=== PATIENT | female | born 1995 | race Caucasian/White ===

== ENCOUNTER → 2016-07-08 | Outpatient (CLI) | payer MEDICAID ==
--- NOTE | 2016-07-08 16:20 | RADIOLOGY REPORT PS360 ---
HAND-RT 3 VIEWS HISTORY: Follow-up fracture HEALING OF RT HAND FX ORDERING PHYSICIAN: Gómez Roland MD PATIENT AGE: 21 years COMPARISON: 07/03/2016 FINDINGS: A splint is in place obscuring the fifth metacarpal fracture. There is good alignment of fracture fragments. Fracture line is barely visible. IMPRESSION: Good alignment fifth metacarpal fracture
== END ==
LOC: RAD 15:33
DX: S62.91XA Unspecified fracture of right hand, initial encounter for closed fracture (principal)

== ENCOUNTER 2017-01-15 17:19 | Emergency (ER) | payer MEDICAID ==
[~2017-01-15] VITALS: Ht 167.6 cm; Wt 47.6 kg
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
--- OUTSIDE RECORDS SUMMARY | 2017-01-15 17:42 | External Medical Summary Rpt | CCD ---
Demographics Preferred Language Greenlandic Marital Status Unknown Buddhism Affiliation Unknown Race Unknown Ethnic Group Unknown Author Author , DEANNA NAVARRO Address Unknown Phone Immunization No patient found.
--- OUTSIDE RECORDS SUMMARY | 2017-01-15 17:42 | External Medical Summary Rpt | CCD ---
Demographics Preferred Language Setswana Marital Status Unknown Shinto Affiliation Unknown Race Unknown Ethnic Group Unknown Author Author , DEANNA NAVARRO Address Unknown Phone Immunization No patient found.
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
--- OUTSIDE RECORDS SUMMARY | 2017-01-15 17:42 | External Medical Summary Rpt ---
Author Author RAMON Adan, [employer] Organization [employer] Address Unknown Phone Unavailable Results ELBLT Observa Value Referen Units Interpr Notes Date tion ce etation Range TEXT ORIENTAL ORTHODOX No No No No Nov 23 DIAGNOS HEALTH informa informa informa informa 2013 IS tion in tion in tion in tion in 4:14 PM BATTERY RICHMON source source source source D\\.br\\8 data data data data [facility] \\ .br\\[place] [address]\\. br\\[id number] [phone] 1\\.br\\\\ .br\\[facility]\\ .br\\100 10176\\ .br\\\\.b r\\Helen d\\.br\\\\ .br\\PAT IENT NAME: LEX SCHROEDER 236\\.br \\: 995 [address]\\. br\\ATTE NDING: DATE OF EXAM: 4\\.br\\P RIMARY CARE: NOT IN DICTION MONICA LOCATIO N:\\.br\\ \\.br\\OR DERING PHYSICI AN: JUANCHO MADISON MD\\.br\\ PROCEDU RE(s): ELBOW LEFT\\.b r\\ORDER NUMBER( s): [id number] 61\\.br\\ \\.br\\CC :\\.br\\\\ .br\\\\.b r\\\\.br\\ \\.br\\EX AM: LEFT ELBOW RADIOGR APHS\\.b r\\\\.br\\ CLINICA L INFO: Pain.\\. br\\\\.br \\TECHNI QUE: Three views.\\ .br\\\\.b r\\FINDI NGS: There are no fractur es or disloca tions. There is no joint effusio n.\\.br\\ The soft tissues are unremar kable.\\ .br\\\\.b r\\IMPRE SSION: Unremar kable exam.\\. br\\\\.br \\\\.br\\\\ .br\\Rev iewed and signed by: LUIS MANUEL HAIR MD, 014 08:27:2 3\\.br\\T his documen t has been electro nically signed and is conside red final.\\ .br\\\\.b r\\\\.br\\ SR/5554 160\\.br \\ \\ .br\\\\.b r\\DICTA FELIPE BY: LUIS MANUEL HAIR MD\\.br\\ DICTATE D DATE/TI ME: 4 1614\\.b r\\TRANS CRIBED DATE/TI ME: 4 1648\\.b r\\\\.br\\ CC:\\.br \\ URINE CULTURE Observa Value Referen Units Interpr Notes Date tion ce etation Range TEXT ------- . . Normal No Oct 1 DIAGNOS ------- informa 2013 IS ------- tion in 3:27 PM BATTERY ------- source ------- data ------- ------- ------- ------- ------- ------- ------- ------- -RUN DATE: 4 [employer] [facility] LIVE* * PAGE 1RUN TIME: 620 Specime n Inquiry ------- ------- ------- ------- ------- ------- ------- ------- ------- ------- ------- ------- ------- -ALLIE T: LEX SCHROEDER ACCT: [id number] LOC: ED U: [id number] AGE/SX: 18/F ROOM: RE 4REG DR: JUANCHO MADISON MD : [id number] BED: DIS: STATUS: DEP ER TLOC:-- ------- ------- ------- ------- ------- ------- ------- ------- ------- ------- ------- ------- ------S PEC #: [id number] DAISY: STATUS: COMP REQ #: [id number] RECD: ANTONIO DR: JUANCHO MADISON [facility] E: URINE ENTR: [address]: NOT IN DICTION ARYSPDE SC: CCMSORD ERED: UC----- ------- ------- ------- ------- ------- ------- ------- ------- ------- ------- ------- ------- --- Procedu re Result- ------- ------- ------- ------- ------- ------- ------- ------- ------- ------- ------- ------- ------- URINE CULTURE Final NO GROWTH AFTER 24 HOURS-- ------- ------- ------- ------- ------- ------- ------- ------- ------- ------- ------- ------- ------ END OF REPORT URINALYSIS/REFLEX TO UC Observa Value Referen Units Interpr Notes Date tion ce etation Range COLOR,U Yellow . No Normal No Oct 1 RINE informa informa 2014 tion in tion in 3:44 PM source source data data APPEARA Slightl . No Normal No Oct 1 NCE,URI y informa informa 2013 NE Cloudy tion in tion in 3:44 PM source source data data GLUCOSE Negativ NEGATIV No Normal No Oct 1 , URINE e E informa informa 2013 (UA) tion in tion in 3:44 PM source source data data BILIRUB Negativ NEGATIV No Normal No Oct 1 IN,URIN e E informa informa 2014 E tion in tion in 3:44 PM source source data data KETONES SMALL NEGATIV No Abnorma No Oct 1 ,URINE E informa l informa 2013 tion in tion in 3:44 PM source source data data SPECIFI 1.025 1.003 - No Normal No Oct 1 C 1.035 informa informa 2014 GRAVITY tion in tion in 3:44 PM ,URINE source source data data URINE Small NEGATIV No Normal No Oct 1 BLOOD E informa informa 2014 tion in tion in 3:44 PM source source data data URINE 7.0 5.0 - No Normal No Oct 1 pH 8.0 informa informa 2014 tion in tion in 3:44 PM source source data data PROTEIN Negativ NEGATIV No Normal No Oct 1 ,URINE e E informa informa 2014 DIP tion in tion in 3:44 PM source source data data UROBILI 4.0 0.2 No Normal No Oct 1 NOGEN,U informa informa 2013 RINE tion in tion in 3:44 PM source source data data NITRATE Negativ NEGATIV No Normal No Oct 1 ,URINE e E informa informa 2014 tion in tion in 3:44 PM source source data data LEUKOCY Negativ NEGATIV No Normal No Oct 1 TE e E informa informa 2014 ESTERAS tion in tion in 3:44 PM E source source ,URINE data data WBC, 4-10 0 - 3 No Normal URINE Oct 1 URINE informa CULTURE 2013 tion in AND 4:05 PM source SENSITI data VITY ORDERED . RBC,URI 0-3 0 - 3 No Normal No Oct 1 NE informa informa 2013 tion in tion in 4:05 PM source source data data EPITHEL 4-10 0 - 3 No Normal No Oct 1 IAL informa informa 2013 CELL, tion in tion in 4:05 PM URINE source source data data BACTERI 1+ NONE No Normal No Oct 1 A,URINE SEEN informa informa 2013 tion in tion in 4:05 PM source source data data MUCUS,U TRACE NONE No Normal No Oct 1 RINE SEEN informa informa 2013 tion in tion in 4:05 PM source source data data UPREG Observa Value Referen Units Interpr Notes Date tion ce etation Range UPREG NEGATIV . No Normal No Oct 1 E informa informa 2013 tion in tion in 3:52 PM source source data data CBC W/AUTO Observa Value Referen Units Interpr Notes Date tion ce etation Range WBC 12.2 4.8 - THOUS High No Oct 1 10.8 inform2013 tion in 3:25 PM source data RBC 4.53 4.20 - m/uL Normal No Oct 1 5.40 inform2013 tion in 3:25 PM source data HGB 12.7 12.0 - g/dL Normal No Oct 1 16.0 inform2013 tion in 3:25 PM source data HCT 39 37 - 47 % Normal No Oct 1 inform2013 tion in 3:25 PM source data MEAN 86.1 81.0 - fL Normal No Oct 1 CORPUSC 99.0 informa 2013 ULAR tion in 3:25 PM VOLUME source data MEAN 28.1 27.0 - uug Normal No Oct 1 CORPUSC 31.0 inform2013 ULAR tion in 3:25 PM HEMOGLO source BIN data MEAN 32.6 30.0 - g/dL Normal No Oct 1 CORPUSC 37.0 informa 2013 ULAR tion in 3:25 PM HGB source CONC data RED 12.5 11.5 - % Normal No Oct 1 CELL 14.5 informa 2013 DISTRIB tion in 3:25 PM UTION source WIDTH data PLATELE 315 130 - THOUS Normal No Oct 1 T COUNT 400 informa 2013 tion in 3:25 PM source data NEUTROP 76.4 37.0 - % Normal No Oct 1 HILS % 80.0 informa 2013 (AUTO) tion in 3:25 PM source data LYMPHOC 17.5 10.0 - % Normal No Oct 1 YTES % 50.0 informa 2013 (AUTO) tion in 3:25 PM source data MONOCYT 5.4 0.0 - % Normal No Oct 1 ES % 12.0 informa 2013 (AUTO) tion in 3:25 PM source data EOSINOP 0.5 0.0 - % Normal No Oct 1 HILS % 7.0 informa 2013 (AUTO) tion in 3:25 PM source data BASOPHI 0.20 0.00 - % Normal No Oct 1 LS % 2.50 informa 2013 (AUTO) tion in 3:25 PM source data NEUTROP 9.30 2.00 - THOUS High No Oct 1 HILS # 6.90 informa 2013 (AUTO) tion in 3:25 PM source data LYMPHOC 2.10 0.60 - THOUS Normal No Oct 1 YTES # 3.40 informa 2013 (AUTO) tion in 3:25 PM source data MONOCYT 0.70 0.00 - THOUS Normal No Oct 1 ES # 0.90 informa 2013 (AUTO) tion in 3:25 PM source data EOSINOP 0.10 0.00 - THOUS Normal No Oct 1 HILS # 0.70 informa 2013 (AUTO) tion in 3:25 PM source data BASOPHI 0.00 0.00 - THOUS Normal No Oct 1 LS # 0.20 informa 2013 (AUTO) tion in 3:25 PM source data URINE CULTURE Observa Value Referen Units Interpr Notes Date tion ce etation Range URINE LACSPLA No No No No Apr 11 CULTURE CTOBACI informa informa informa informa 2013 REPORT LLUS tion in tion in tion in tion in 6:33 AM SPECIES source source source source data data data data URINE COLONY No No No No Apr 11 CULTURE COUNT informa informa informa informa 2013 REPORT tion in tion in tion in tion in 6:33 AM source source source source data data data data URINE >100,00 No CFU/ml Normal No Mar 11 CULTURE 0 informa informa 2013 REPORT tion in tion in 6:33 AM source source data data URINE SENSITI No No No No Apr 11 CULTURE VITY informa informa informa informa 2013 REPORT tion in tion in tion in tion in 6:33 AM source source source source data data data data URINE SENSITI No No Normal No Apr 11 CULTURE VITIES informa informa informa 2014 REPORT NOT tion in tion in tion in 6:33 AM INDICAT source source source ED FOR data data data THIS ORGANIS M ,QUALITATIVE URINE Observa Value Referen Units Interpr Notes Date tion ce etation Range PREGNAN NEGATIV No No Normal Sensiti Apr 8 CY,QUAL E informa informa vity: 2014 ITATIVE tion in tion in 20mIU/m 7:58 PM URINE source source L data data SPECIFI 1.006 No No Normal No Apr 8 C informa informa informa 2014 GRAVITY tion in tion in tion in 8:01 PM source source source data data data UA C\\T\\S IF INDICATED W/MICRO Observa Value Referen Units Interpr Notes Date tion ce etation Range COLLECT CLEAN No No Normal No Apr 8 ION CATCH informa informa informa 2014 METHOD tion in tion in tion in 7:45 PM source source source data data data COLOR YELLOW No No Normal No Apr 8 informa informa informa 2014 tion in tion in tion in 8:00 PM source source source data data data APPEARA CLOUDY No No Normal No Apr 8 NCE informa informa informa 2013 tion in tion in tion in 8:00 PM source source source data data data GLUCOSE NEGATIV NEGATIV mg/dL Normal No Apr 8 E E informa 2013 tion in 8:00 PM source data BILIRUB NEGATIV NEGATIV mg/mL Normal No Apr 8 IN E E informa 2013 tion in 8:00 PM source data KETONE NEGATIV NEGATIV mg/dL Normal No Apr 8 E E informa 2013 tion in 8:00 PM source data SPECIFI 1.006 1.003 - No Normal No Apr 8 C 1.035 informa informa 2014 GRAVITY tion in tion in 8:00 PM source source data data BLOOD >=1.0 NEGATIV mg/dL Abnorma No Apr 8 E l informa 2013 tion in 8:00 PM source data pH 8.0 5.0 - No Normal No Apr 8 9.0 informa informa 2013 tion in tion in 8:00 PM source source data data PROTEIN NEGATIV NEGATIV mg/dL Normal No Apr 8 E E informa 2013 tion in 8:00 PM source data UROBILI NORMAL <2 mg/dL Normal No Apr 8 NOGEN informa 2013 tion in 8:00 PM source data NITRITE NEGATIV NEGATIV No Normal No Apr 8 E E informa informa 2014 tion in tion in 8:00 PM source source data data LEUKOCY 500 NEGATIV SANAM/uL Abnorma No Apr 8 TE E l informa 2014 ESTERAS tion in 8:00 PM E source data RBC 3-5 No /hpf Normal No Apr 8 informa informa 2014 tion in tion in 8:00 PM source source data data WBC 15-30 No /hpf Normal No Apr 8 informa informa 2014 tion in tion in 8:00 PM source source data data SQUAMOU 15-30 No /hpf Normal No Apr 8 S informa informa 2014 EPITHEL tion in tion in 8:00 PM IAL source source CELLS data data BACTERI 3+ No /hpf Normal No Apr 8 A informa informa 2013 tion in tion in 8:00 PM source source data data Specime CLEAN No No No No Apr 8 n Type CATCH informa informa informa informa 2014 tion in tion in tion in tion in 7:37 PM source source source source data data data data MONOSCREEN Observa Value Referen Units Interpr Notes Date tion ce etation Range MONOSCR NEGATIV NEGATIV No Normal No Apr 8 EEN E E informa informa 2013 tion in tion in 7:55 PM source source data data RAPID STREP SCREEN Observa Value Referen Units Interpr Notes Date tion ce etation Range RAPID CALLED No No No No Apr 8 STREP BY: informa informa informa informa 2014 SCREEN tion in tion in tion in tion in 7:55 PM source source source source data data data data RAPID VERO No No Normal No Apr 8 STREP AAYUSH informa informa informa 2014 SCREEN FINANCE EFFECTIVENESS MANAGER tion in tion in tion in 7:55 PM source source source data data data RAPID CALLED No No No No Apr 8 STREP TO: informa informa informa informa 2014 SCREEN tion in tion in tion in tion in 7:55 PM source source source source data data data data RAPID DR SANDOVAL No No Normal No Apr 8 STREP ER informa informa informa 2014 SCREEN tion in tion in tion in 7:55 PM source source source data data data RAPID DATE No No No No Mar 8 STREP CALLED: informa informa informa informa 2014 SCREEN tion in tion in tion in tion in 7:55 PM source source source source data data data data RAPID No No Normal No Mar 8 STREP 4 informa informa informa 2014 SCREEN tion in tion in tion in 7:55 PM source source source data data data RAPID TIME No No No No Mar 8 STREP CALLED: informa informa informa informa 2014 SCREEN tion in tion in tion in tion in 7:55 PM source source source source data data data data RAPID 1953 No No Normal No Mar 8 STREP informa informa informa 2014 SCREEN tion in tion in tion in 7:55 PM source source source data data data RAPID VERIFIE No No No No Apr 8 STREP D: informa informa informa informa 2014 SCREEN tion in tion in tion in tion in 7:55 PM source source source source data data data data RAPID VERIFIE No No Normal No Mar 8 STREP D BY informa informa informa 2014 SCREEN READ tion in tion in tion in 7:55 PM BACK OF source source source data data data PATIENT NAME AND RESULT RAPID RESULT No No No No Mar 8 STREP informa informa informa informa 2014 SCREEN tion in tion in tion in tion in 7:55 PM source source source source data data data data RAPID POSITIV No No Abnorma No Apr 8 STREP E FOR informa informa l informa 2014 SCREEN GROUP A tion in tion in tion in 7:55 PM STREP source source source ANTIGEN data data data RAPID STREP SCREEN Observa Value Referen Units Interpr Notes Date tion ce etation Range RAPID CALLED No No No No Mar 20 STREP BY: informa informa informa informa 2014 SCREEN tion in tion in tion in tion in 5:11 PM source source source source data data data data RAPID JC No No Normal No Mar 20 STREP SELENE informa informa informa 2014 SCREEN HOAGLAN tion in tion in tion in 5:11 PM D, MT source source source ([facility]) data data data RAPID CALLED No No No No Mar 20 STREP TO: informa informa informa informa 2014 SCREEN tion in tion in tion in tion in 5:11 PM source source source source data data data data RAPID WHITNEY No No Normal No Mar 20 STREP PATTERS informa informa informa 2014 SCREEN ON, RN tion in tion in tion in 5:11 PM IN THE source source source ER data data data RAPID DATE No No No No Mar 20 STREP CALLED: informa informa informa informa 2014 SCREEN tion in tion in tion in tion in 5:11 PM source source source source data data data data RAPID No No Normal No Mar 20 STREP 4 informa informa informa 2014 SCREEN tion in tion in tion in 5:11 PM source source source data data data RAPID TIME No No No No Mar 20 STREP CALLED: informa informa informa informa 2014 SCREEN tion in tion in tion in tion in 5:11 PM source source source source data data data data RAPID 1710 No No Normal No Mar 20 STREP informa informa informa 2014 SCREEN tion in tion in tion in 5:11 PM source source source data data data RAPID VERIFIE No No No No Mar 20 STREP D: informa informa informa informa 2014 SCREEN tion in tion in tion in tion in 5:11 PM source source source source data data data data RAPID VERIFIE No No Normal No Mar 20 STREP D BY informa informa informa 2013 SCREEN READ tion in tion in tion in 5:11 PM BACK OF source source source data data data PATIENT NAME AND RESULT RAPID RESULT No No No No Mar 20 STREP informa informa informa informa 2014 SCREEN tion in tion in tion in tion in 5:11 PM source source source source data data data data RAPID POSITIV No No Abnorma No Mar 20 STREP E FOR informa informa l informa 2013 SCREEN GROUP A tion in tion in tion in 5:11 PM STREP source source source ANTIGEN data data data C.TRACH/N.GONORR BY AMP. DNA Observa Value Referen Units Interpr Notes Date tion ce etation Range C.TRACH Negativ Negativ No Normal TEST June 28 OMATIS, e e informa INFORMA 2011 DNA tion in TION: 5:08 PM source Chlamyd data ia trachom atis Amplifi ed DetectP ositive results are confirm ed using an alterna tive nucleic acid target [facility] with the [facility] [employer] [facility] Guideli ne: "Chlamy kee trachom atis and Neisser iagonor rhoeae 2001 Screeni ng Guideli emil."Cu lture may be require d in certain clinica l context s fordiag nosing Chlamyd ia trachom atis infecti ons to meetapp licable laws and regulat ions. N.GONOR Negativ Negativ No Normal TEST June 28 ciera RUEDA informa INFORMA 2010 DNA tion in TION: 5:08 PM source Neisser data ia gonorrh oeae, Amplifi ed DetectP ositive results are confirm ed using an alterna tive nucleic acid target [facility] the [facility] with the [facility] Guideli ne: "Chlamy kee trachom atis and Neisser iagonor rhoeae 2001 Screeni ng Guideli emil."Cu lture may be require d in certain clinica l context s fordiag nosing Neisser ia gonorrh oeae infecti ons to meetapp licable laws and regulat ions.Pe rformed by MARIELA porras,[address] [place] [address] [phone] [email or web address], Keira Stewart MD, Lab. Directo r APTIMA Urine () No Normal No June 28 MEDIA informa informa 2010 TYPE tion in tion in 5:08 PM source source data data Chlamyd URINE No No No No June 26 ia informa informa informa informa 2010 Source: tion in tion in tion in tion in 1:31 PM source source source source data data data data Neisser URINE No No No No June 26 ia informa informa informa informa 2010 Source: tion in tion in tion in tion in 1:31 PM source source source source data data data data
--- OUTSIDE RECORDS SUMMARY | 2017-01-15 17:42 | External Medical Summary Rpt | CCD ---
Author Author , RAMON Elkins RAMON Address Unknown Phone [email or web address] Care Team Providers Care Assistant Toddler Teacher Name Role Phone [facility], Unavailable Unavailable [facility] [place] Unavailable Unavailable [facility] Unavailable Unavailable AND PR[facility], [facility], Unavailable Unavailable [facility] ADELFO OAKLEY, Unavailable Unavailable ADLEFO OAKLEY DR, HARRISON, Unavailable Unavailable CONTRERAS, [facility] AHQUIST EPHRAIM MCDOWELL Unavailable Unavailable [facility] [place] Un[facility] Unavailable INC, [facility], Unavailable Unavailable [facility] Unavailable Unavailable IMAGING ASS, [facility] MARY JANE TINSLEY, Unavailable Unavailable MARY JANE TINSLEY [facility] # Unavailable Unavailable [id number], [facility] # [id number] COLLIN HART Unavailable Unavailable [facility], Unavailable Unavailable [facility], [facility] RIC CAIN, Unavailable Unavailable RIC CAIN, CATA Alegria, CELESTINO, Unavailable Unavailable CATA M [facility] [place] Unavailable Unavailable CLINIC P, [facility] [place] P [facility] Unavailable [facility]available EMER[facility]ENCY PH[facility], [facility] STICH FRANKIE, STIC FRANKIE Unavailable Unavailable [facility] Unavailable Unavailable #692, [id number] # Unavailable Unavailable [id number], [facility] # [id number] Purpose Continuity of Care Document - 06-03-2007 through 2016 Problems Code Diagnosis DOS Provider Status [id number] UNS FX UNS 07-15-2016 [facility] SUB ENC INC FX ROUTINE HEAL H05251L NDSPLC FX 07-15-[address] RT HND IMAGING ASS SUB ENC FX RTN O04050V UNS FX 5TH 07-08-2016 [facility] RT MEDICAL HAND SUB IMAGING ASS ENC FX ROUTINE HEAL M33370N UNS FX UNS 07-08-2016 [facility] BONE GROUP INITIAL ENC CLOS FX [id number] UNS FX RT 07-08-2016 [facility] INITIAL ENC INC CLOS FRACTURE O29971 PAIN IN 07-03-2016 [facility] S00832 PAIN IN 07-03-2016 [place] [facility] E15947 PAIN IN 07-03-2016 [place] [facility]EARM IM[facility]ING ASS V60704L UNSPECIFIED 07-03-2016 [place] [facility] RIGHT [facility] IMAGING ASS INITIAL ENCOUNTER W44183Y UNS FX 5TH 07-03-2016 [facility] BONE RT MEM HOS[facility] HAND INC INITIAL ENC CLOS FX G07254Z NDSPLC FX 07-03-[address] MEDICAL BN RT HND IMAGING ASS INIT ENC CLOS FX A70618D NDSPLC FX 07-03-2016 [facility], BN RT HND PLLC INIT ENC CLOS FX P7198EP UNSPECIFIED 07-03-2016 [place] [facility] RT MEDICAL WRIST HAND IMAGING ASS FINGERS INITIAL N921 EXCESS & 05-02-2016 [facility] MENSTRUATIO INC N W/IRREGULAR CYCLE R300 DYSURIA 05-02-2016 [facility] INC Z720 TOBACCO USE 05-02-2016 [facility] B349 VIRAL 03-28-2016 [facility] UNSPECIFIED INC H95804 ACUTE 03-19-2016 [facility] SUPPURATIVE PHYSICIANS OM W/O GROUP RUPT EAR DRUM LT EAR M5386 OTHER 02-21-2016 [place] SPECIFIED [facility] DORSOPATHIE C CENTE S LUMBAR REGION M5413 RADICULOPAT 02-21-2016 [place] HY [facility] CERVICOTHOR C CENTE ACIC REGION M9906 SEGMENTAL & 02-21-2016 [place] [facility] DYSFUNCTION C CENTE LOWER EXTREMITY M9907 SEGMENTAL & 02-21-2016 [place] [facility] DYSFUNCTION C CENT[facility] UPPER EXTREMITY H6502 ACUTE 01-09-2015 [place] [facility]OUS [facility]IN[facility] P MEDIA LEFT EAR N390 URINARY 01-09-2015 [place] TRACT MEDICAL INFECTION CLINIC P SITE NOT SPECIFIED N760 ACUTE 01-09-2015 [place] VAGINITIS [facility]ICAL CLINIC P Z124 ENCOUNTER 01-09-2015 [place] OTHER MEDICAL SCREENING CLINIC P MALIG NEOPLASM CERVIX K5900 CONSTIPATIO 12-27-2014 [place] N MEDICAL UNSPECIFIED CLINIC P R197 DIARRHEA 12-27-2014 [place] UNSPECIFIED MEDICAL CLINIC P Z3002 COUNSELING 12-27-2014 [place] INSTRUCT MEDICAL NATURAL FAM CLINIC P PLAN AVOID PREG 5990 URINARY 11-23-2013 [facility] INFECTION PHYS SITE NOT SPECIFIED 01308 PAIN IN 11-23-2013 [facility], [facility]Y UPPER ARM 7802 SYNCOPE AND 11-23-2013 [facility] 36353 CONTUSION 11-23-2013 [facility] [place] N EMERGENCY PHYS E8888 OTHER FALL 11-23-2013 [facility] N [facility] 0340 STREPTOCOCC 04-30-2013 [facility] AL SORE [facility] THROAT [facility] 34942 UNSPECIFIED 02-08-2013 [facility] FRANKIE CONSTIPATIO N V703 OTH GENERAL 03-12-2012 [facility] EXAMINATION AND PRIM ADMIN PURPOSES 4618 OTHER ACUTE 07-29-2011 [facility] SINUSITIS [facility]ATRICS AND PRIM 4660 ACUTE 07-29-2011 [facility] BRONCHITIS [facility]EDIATRICS AND PRIM 6253 DYSMENORRHE 06-26-2010 DR Molly WEBB,VALENTE SAMANIEGO, [facility] V745 SCREENING 06-26-2010 JE EXAMINATION [facility] VENEREAL DISEASE 3670 HYPERMETROP 10-18-2009 COLLIN BOYKIN V202 ROUTINE 06-05-2009 [facility] IN[facility] OR PEDIATRICS CHILD AND [facility]IMARY [facility]ARE PLL[facility] CHECK 3671 MYOPIA 05-14-2009 MARY JANE TINSLEY 50796 UNSPECIFIED 05-14-2009 MARY JANE TINSLEY ASTIGMATISM 462 ACUTE 12-06-2007 [facility] PHARYNGITIS PEDIATRICS AND PRIMARY CARE PLLC 4659 ACUTE URIS 12-06-2007 [facility] OF PEDIATRICS UNSPECIFIED AND PRIMARY SITE CARE PLLC V058 NEED PROPH 12-06-2007 [facility] VACC&INOCUL [facility]EDIATRICS AT [facility] AND PRIMARY OTH SPEC CARE PLLC DISEASE V154 PERS HX 10-25-2007 DEPT FOR PSYCHOLOGIC PUBLIC HLTH AL TRAUMA PRS [facility] V0489 NEED PROPH 06-03-2007 [facility] VACCINATION PEDIATRICS &INOCULAT AND PRIMARY OTH VIRAL [...] 3 54 09 09 1 15 30 [place] 74 AT Ac 45 -2 -2 .0 L- 57 KI ti 80 1- 1- 00 [place] 50 NS ve 94 20 20 RT 6 ON 51 10 10 0 PH JU AR LI MA E CY # 10 06 92 54 08 08 0 15 30 [place] 74 AT Ac 45 -0 -2 .0 L- 51 KI ti 80 3- 1- 00 MA 12 NS ve 94 20 20 RT 8 ON 51 10 10 0 PH JU AR LI MA E CY # 10 06 92 54 03 07 2 15 30 [place] 74 No Ac 45 -1 -2 .0 L- 21 t ti 80 8- 3- 00 [place] 87 Av ve 94 20 20 RT 8 ai 51 10 10 la 0 PH bl AR e MA CY # 10 06 92 59 04 05 0 20 10 [place] 74 DI Ac 76 -1 -0 .0 L- 30 CK ti 21 3- 3- 00 MA 25 IN ve 05 20 20 RT 9 SO 00 10 10 N 5 PH JE AR RE MA MY CY # 10 06 92 54 03 04 2 15 30 [place] 74 No Ac 45 -1 -2 .0 L- 21 t ti 80 8- 5- 00 [place] 87 Av ve 94 20 20 RT 8 ai 51 10 10 la 0 PH bl AR e MA CY # 10 06 92 54 03 03 2 15 30 [place] 74 No Ac 45 -1 -2 .0 [...] End Date Code Location Performer Type Date [facility] [place] [address] [facility] [place] [address] [facility] [place] [address] [facility] [place] [address] [facility] [place] [address] [facility] - 4 4 [facility] JE - 4 4 [facility] JE - 4 4 [facility] JE - 3 3 [facility] JE - 1 1 [facility]
--- OUTSIDE RECORDS SUMMARY | 2017-01-15 17:42 | External Medical Summary Rpt ---
Author Author RAMON Adan, RAMON [employer] Organization [employer] Address Unknown Phone Unavailable Results ELBLT Observa Value Referen Units Interpr Notes Date tion ce etation Range TEXT EVANGELICAL No No No No Nov 23 [facility] informa informa informa informa 2013 IS tion in tion in tion in tion in 4:14 PM [facility] source source source source D\\.br\\8 data data data data [place] \\ .br\\[place] [address]\\. br\\758- [phone] 1\\.br\\\\ .br\\[facility] Report\\ .br\\100 10176\\ .br\\\\.b r\\Helen d\\.br\\\\ .br\\PAT IENT NAME: LEX SCHROEDER 236\\.br \\: [phone]\\. br\\ATTE NDING: DATE OF EXAM: 4\\.br\\P RIMARY CARE: NOT IN DICTION MONICA LOCATIO N:\\.br\\ \\.br\\OR DERING PHYSICI AN: JUANCHO MADISON MD\\.br\\ PROCEDU RE(s): ELBOW LEFT\\.b r\\ORDER NUMBER( s): [id number] 61\\.br\\ \\.br\\CC :\\.br\\\\ .br\\\\.b r\\\\.br\\ \\.br\\EX AM: [...] ------- ------- ------- ------- -RUN DATE: 4 [facility] * PAGE 1RUN TIME: 620 Specime n Inquiry ------- ------- ------- ------- ------- ------- ------- ------- ------- ------- ------- ------- ------- -ALLIE T: LEX SCHROEDER ACCT: [id number] LOC: ED U: [id number] AGE/SX: 18/F ROOM: RE 4REG DR: JUANHCO MADISON MD : [id number] BED: DIS: STATUS: DEP ER TLOC:-- ------- ------- ------- ------- ------- ------- ------- ------- ------- ------- ------- ------- ------S PEC #: [id number] DAISY: STATUS: COMP REQ #: [id number] RECD: ANTONIO DR: JUANCHO MADISON [facility] E: URINE ENTR: 1605 [...] STREP AAYUSH informa informa informa 2014 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 tion in tion in 7:55 [...] 5:11 PM D, [place] source source source ([facility]) data data data RAPID CALLED No No [...] an alterna [place]ive [place] [facility] [place] [facility] Disease Control Guideli ne: "Chlamy kee trachom atis and Neisser iagonor rhoeae 2001 Screeni ng Guideli meil."Cu lture may be require d in certain [...] an alterna tive nucleic acid [place] [facility] [place] [facility] for Disease Control Guideli ne: "Chlamy kee trachom atis and Neisser iagonor rhoeae 2001 Screeni ng Guideli emil."Cu lture may be require d in certain clinica l context s fordiag nosing Neisser ia gonorrh oeae infecti ons to meetapp licable laws and regulat ions.Pe rformed by MARIELA porras,[address] [place] [address] [phone] [email or web address], Keira Stewart MD, Lab. Directo r APTIMA [...]
[2017-01-15 17:43] LABS: URINE BILIRUBIN - DIPSTICK NEGATIVE (NEG); URINE BLOOD TRACE-INTACT (NEG)
[2017-01-15 17:52] LABS: AMPHETAMINES/METAMPHETAMINES NEGATIVE ng/mL (<1000); HEMOGLOBIN 13.8 g/dL (12.2-16.2); LYMPH # 1.5 K/mm3 (0.7-4.5); LYMPH % 23.6 % (10-50.0)
[2017-01-15] MEDS ORDERED: NAPROSYN500 M1 PO (18:16)
[2017-01-15] MEDS ORDERED: MACROBID100 M3 PO (18:16)
[2017-01-15 19:29] VITALS: BP 125/81
--- NOTE | 2017-01-15 20:21 | RADIOLOGY REPORT PS360 ---
EXAM: LUMBAR SPINE 5 VIEWS HISTORY: FALL 3-5 DAYS AGO ORDERING PHYSICIAN: Beth Alvarez MD PATIENT AGE: 21 years COMPARISON: None FINDINGS: Normal alignment. No fracture or dislocation. No lytic or blastic change. No significant degenerative change. The disc spaces are preserved. IMPRESSION: No acute finding
--- NOTE | 2017-01-16 07:51 | RADIOLOGY REPORT PS360 ---
HIP BILATERAL 2 VIEW MIN EACH COMPARISON: None HISTORY: Pelvic and hip pain after a fall 3 days ago TECHNIQUE: AP pelvis and frog-leg views of both hips FINDINGS: The iliac bones and pubic bones appear intact. Both hips are normally articulated. Frog-leg views show normal range of motion of both hips. There is no fracture and there is no degenerative change. SI joints and symphysis pubis appear normal. IMPRESSION: Negative pelvis and bilateral hips
--- NOTE | 2017-01-16 07:51 | RADIOLOGY REPORT PS360 ---
ABD ACUTE(MUL VIEWS) COMPARISON: None HISTORY: Decreased appetite TECHNIQUE: PA chest, KUB and upright abdomen FINDINGS: The lung montano are well expanded and clear of infiltrate. The cardiac silhouette and vascularity are normal. There are small calcified left hilar nodes. Abdominal films show minimal scattered stool in the ascending colon along with minimal small bowel gas in the lower mid pelvis. There are no dilated loops and there are no air-fluid levels seen. There is no free air. IMPRESSION: Essentially negative chest and abdomen
== END 2017-01-15 19:30 | disposition home or self-care (01) ==
LOC: ER 17:19
PROVIDERS: Emergency Medicine
DX: N39.0 Urinary tract infection, site not specified (principal); S70.02XA Contusion of left hip, initial encounter; S70.01XA Contusion of right hip, initial encounter; W18.39XA Other fall on same level, initial encounter; Y92.009 Unspecified place in unspecified non-institutional (private) residence as the place of occurrence of the external cause; F17.210 Nicotine dependence, cigarettes, uncomplicated; F12.10 Cannabis abuse, uncomplicated
CPT/HCPCS: J2405

== ENCOUNTER 2017-01-23 21:56 | Emergency (ER) | payer MEDICAID ==
[~2017-01-23] VITALS: Ht 167.6 cm; Wt 49.0 kg
[~2017-01-23 21:56] MED LIST: MACROBID100 M3 PO; NAPROSYN500 M1 PO
[2017-01-23 22:24] LABS: HEMOGLOBIN 13.7 g/dL (12.2-16.2); LYMPH # 1.6 K/mm3 (0.7-4.5); LYMPH % 18.1 % (10-50.0)
[2017-01-23] MEDS ORDERED: MIRTAZAPINE15 M1 PO (22:26)
--- OUTSIDE RECORDS SUMMARY | 2017-01-23 22:27 | External Medical Summary Rpt | CCD ---
Demographics Home Phone Preferred Language Maldivian Marital Status Unknown Judaism Affiliation Unknown Race Unknown Ethnic Group Unknown Author Author , RAMON Organization RAMON Address Unknown Phone [email or web address] Care Team Providers Care Hand Knitter Name Role Phone [facility], Unavailable Unavailable [facility] [place] Unavailable Un[facility] Unavailable Unavailable AND PRIM, [facility], Unavailable Unavailable [facility] ADELFO OAKLEY, Unavailable Unavailable ADELFO OAKLEY DR, HARRISON, Unavailable Unavailable DR JON CHAIREZ HARRISON, AHQUIST EPHRAIM MCDOWELL Unavailable Unavailable [place], [place] [facility] [place] [facility] Unavailable Unavailable INC, [facility], Unavailable Unavailable [facility] Unavailable Unavailable IMAGING ASS, [facility] MARY JANE TINSLEY, Unavailable Unavailable MARY JANE TINSLEY [facility] # Unavailable Unavailable [id number], [facility] # [id number] COLLIN HART Unavailable Unavailable [facility], Unavailable Unavailable [facility], [facility] RIC CAIN, Unavailable Unavailable RIC CAIN SHEILA M, CELESTINO, Unavailable Unavailable CATA M [facility] Unavailable Unavailable CLINIC P, [facility] Unavailable Unavailable EMERGENCY PHYS, [facility] STICH FRANKIE, STIC FRANKIE Unavailable Unavailable [facility] Unavailable Unavailable #[id number], [facility] #[id number] [facility] # Unavailable Unavailable [id number], [facility] # [id number] Purpose Continuity of Care Document - 06-03-2007 through 2016 Problems Code Diagnosis DOS Provider Status [id number] UNS FX UNS 07-15-2016 [facility] BN SUB ENC INC FX ROUTINE HEAL [id number] NDSPLC FX 07-15-[address] RT HND IMAGING ASS SUB ENC FX RTN [id number] UNS FX 5TH 07-08-2016 [facility] RT MEDICAL HAND SUB IMAGING ASS ENC FX ROUTINE HEAL Q38176N UNS FX UNS 07-08-2016 [facility] PHYSICIANS BONE GROUP INITIAL ENC CLOS FX [id number] UNS FX RT 07-08-2016 [facility] INITIAL ENC INC CLOS FRACTURE L61736 PAIN IN 07-03-2016 [facility] S56509 PAIN IN 07-03-2016 [place] [facility] IM[facility]ING ASS A39435 PAIN IN 07-03-2016 [place] [facility] MEDICAL FOREARM IMAGING ASS [id number] UNSPECIFIED 07-03-2016 [place] IN[facility] MEDICAL RIGHT ELBOW IMAGING ASS INITIAL ENCOUNTER N32487A UNS FX 5TH 07-03-2016 [facility] BONE RT MEM HOSP HAND INC INITIAL ENC CLOS FX [id number] NDSPLC FX 07-03-[address] MEDICAL BN RT HND IMAGING ASS INIT ENC CLOS FX [id number] NDSPLC FX 07-03-2016 NBA [facility] [place] [facility]ANS, BN RT HND PLLC INIT ENC CLOS FX [id number] UNSPECIFIED 07-03-2016 [place] [facility] RT MEDICAL WRIST HAND IMAGING ASS FINGERS INITIAL N921 EXCESS & 05-02-2016 [facility] MENSTRUATIO INC N W/IRREGULAR CYCLE R300 DYSURIA 05-02-2016 [facility] INC Z720 TOBACCO USE 05-02-2016 [facility] INC B349 VIRAL 03-28-2016 [facility] UNSPECIFIED INC M5386 OTHER 03-20-2016 [place] SPECIFIED CHIROPRACTI DORSOPATHIE C CENTE S LUMBAR REGION M5413 RADICULOPAT 03-20-2016 [place] HY CHIROPRACTI CERVICOTHOR C CENTE ACIC REGION M9906 SEGMENTAL & 03-20-2016 [place] SOMATIC CHIROPRACTI DYSFUNCTION C CENTE LOWER EXTREMITY M9907 SEGMENTAL & 03-20-2016 [place] SOMATIC CHIROPRACTI DYSFUNCTION C CENTE UPPER EXTREMITY I56707 ACUTE 03-19-2016 [facility] SUPPURATIVE PHYSICIANS OM W/O GROUP RUPT EAR DRUM LT EAR H6502 ACUTE 01-09-2015 [facility] CLINIC P MEDIA LEFT EAR N390 URINARY 01-09-2015 [facility] TRACT MEDICAL INFECTION CLINIC P SITE NOT SPECIFIED N760 ACUTE 01-09-2015 [facility] P Z124 ENCOUNTER 01-09-2015 [facility] OTHER MEDICAL SCREENING CLINIC P MALIG NEOPLASM CERVIX K5900 CONSTIPATIO 12-27-2014 [facility] N MEDICAL UNSPECIFIED CLINIC P R197 DIARRHEA 12-27-2014 [facility] UNSPECIFIED MEDICAL CLINIC P Z3002 COUNSELING 12-27-2014 [facility] INSTRUCT MEDICAL NATURAL FAM CLINIC P PLAN AVOID PREG 5990 URINARY 11-23-2013 [facility]Y INFECTION PHYS SITE NOT SPECIFIED 12571 PAIN IN 11-23-2013 [facility] [place] [facility], RADIOLOGY UPPER ARM 7802 SYNCOPE AND 11-23-2013 [facility] COLLAP[facility] N EMERGENCY PHYS 08394 CONTUSION 11-23-2013 [facility] N EMERGENCY PHYS E8888 OTHER FALL 11-23-2013 [facility] N [facility]ERGENCY PHYS 0340 STREPTOCOCC 04-30-2013 [place] AL SORE BORJA THROAT [facility] 42756 UNSPECIFIED 02-08-2013 [facility] FRANKIE CONSTIPATIO N V703 OTH GENERAL 03-12-2012 [facility] EXAMINATION AND PRIM ADMIN PURPOSES 4618 OTHER ACUTE 07-29-2011 [place] SINUS[facility]IS [facility]IATRICS AND PRIM 4660 ACUTE 07-29-2011 [place] BRONCHITIS PEDIATRICS AND PRIM 6253 DYSMENORRHE 06-26-2010 DR Molly WEBB,[facility] V745 SCREENING 06-26-2010 [facility] EXAMINATION [facility] VENEREAL DISEASE 3670 HYPERMETROP 10-18-2009 COLLIN BOYKIN V202 ROUTINE 06-05-2009 [place] INFANT OR PEDIATRICS CHILD AND PRIMARY [facility]ALTH CARE [facility] CHECK 3671 MYOPIA 05-14-2009 MARY JANE TINSLEY 89359 UNSPECIFIED 05-14-2009 MARY JANE TINSLEY ASTIGMATISM 462 ACUTE 12-06-2007 [place] PHARYNGITIS PEDIATRICS AND PRIMARY CARE [facility] 4659 ACUTE URIS 12-06-2007 [place] OF PEDIATRICS UNSPECIFIED AND PRIMARY SITE CARE PLLC V058 NEED PROPH 12-06-2007 [place] VACC&INOCUL [facility]EDIATRICS AT [facility] AND PRIMARY OTH SPEC CARE PLLC DISEASE V154 PERS HX 10-25-2007 DEPT FOR PSYCHOLOGIC PUBLIC HLTH AL TRAUMA PRS [facility] V0489 NEED PROPH 06-03-2007 [place] VACCINATION PEDIATRICS &INOCULAT AND PRIMARY OTH VIRAL CARE PLLC DZ 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 N39.0 URINARY TRACT INFECTION, SITE NOT SPECIFIED S62.91XA UNSP FRACTURE OF RIGHT WRIST AND HAND, INIT FOR CLOS FX S70.00XA CONTUSION OF UNSPECIFIED HIP, INITIAL ENCOUNTER Medications Na ND Rx Da Fi Fi [...] 3 54 09 09 1 15 30 WA 74 AT Ac 45 -2 -2 .0 L- 57 KI ti 80 1- 1- 00 MA 50 NS ve 94 20 20 RT 6 ON 51 10 10 0 PH JU AR LI MA E CY # 10 06 92 54 08 08 0 15 30 WA 74 AT Ac 45 -0 -2 .0 L- 51 KI ti 80 3- 1- 00 MA 12 NS ve 94 20 20 RT 8 ON 51 10 10 0 PH JU AR LI MA E CY # 10 06 92 54 03 07 2 15 30 WA 74 No Ac 45 -1 -2 .0 L- 21 t ti 80 8- 3- 00 MA 87 Av ve 94 20 20 RT 8 ai 51 10 10 la 0 PH bl AR e MA CY # 10 06 92 59 04 05 0 20 10 WA 74 DI Ac 76 -1 -0 .0 L- 30 CK ti 21 3- 3- 00 MA 25 IN ve 05 20 20 RT 9 SO 00 10 10 N 5 PH JE AR RE MA MY CY # 10 06 92 54 03 04 2 15 30 WA 74 No Ac 45 -1 -2 .0 L- 21 t ti 80 8- 5- 00 MA 87 Av ve 94 20 20 RT 8 ai 51 10 10 la 0 PH bl AR e MA CY # 10 06 92 54 03 03 2 15 30 WA 74 No Ac 45 -1 -2 .0 [...] Order Detail nces retati t Range on Comprehensive metabolic panel (01-15-2017 17:35) Protein = 8.0 6.4-8.2 complet total 017 gm/dL ed ser/tito 17:35 s ALT = 18 12-78 complet (SGPT) 017 U/L ed ser/tito 17:35 s Serum = 14 15-37 complet or 017 U/L ed plasma 17:35 asparta te aminotr ansfera Serum = 138 136-145 complet sodium 017 mmoL/L ed measure 17:35 ment Serum = 3.5 3.5-5.1 complet potassi 017 mmoL/L ed um 17:35 measure ment Serum = 108 74-106 complet or 017 mg/dL ed plasma 17:35 glucose measure ment (mas Serum = 3.2 1.3-3.2 complet globuli 017 gm/dL ed n 17:35 measure ment (mass/v olume) Estimat = 90 59- complet ed 017 ML/MIN ed glomeru 17:35 lar filtrat ion rate (GF Comment: REFERENCE RANGE: >60 ML/MIN/1.73 SQUARE METERS Comment: If this patient is -Saudi Arabian, then multiply the Comment: result by 1.210. Estimat = 83 50-200 complet ion of 017 ML/MIN ed creatin 17:35 ine renal clearan ce Serum = 0.8 0.55-1. complet or 017 mg/dL 02 ed plasma 17:35 creatin ine measure ment ( Carbon = 27 21.0-32 complet dioxide 017 mmoL/L .0 ed 17:35 measure ment Serum = 101 98-107 complet or 017 mmoL/L ed plasma 17:35 chlorid e measure ment (mo Serum = 9.7 8.5-10. complet or 017 mg/dL 1 ed plasma 17:35 calcium measure ment (mas Serum = 6 7-18 complet or 017 mg/dL ed plasma 17:35 urea nitroge n measure men Serum = 0.9 0.2-1.0 complet or 017 mg/dL ed plasma 17:35 total bilirub in measure m Serum = 60 46-116 complet or 017 U/L ed plasma 17:35 alkalin e phospha tase uriah Serum = 4.8 3.4-5.0 complet or 017 gm/dL ed plasma 17:35 albumin measure ment (mas Serum = 1.5 1.1-1.8 complet or 017 ed plasma 17:35 albumin /globul in mass ra CBC w auto diff (01-15-2017 17:35) Blood = 6.3 4.8-10. complet leukocy 017 K/MM3 8 ed cindy 17:35 count (number /volume ) Automat = 12.8 11.5-17 complet ed 017 % .5 ed erythro 17:35 cyte distrib ution width Red = 4.89 4.2-5.4 complet blood 017 M/mm3 ed cell 17:35 count Blood = 338 142-424 complet platele 017 K/mm3 ed t count 17:35 Automat = 6.5 7.4-10. complet ed 017 fl 4 ed blood 17:35 platele t mean volume uriah [place] % = 6.3 % 1.7-9.3 complet 017 ed 17:35 Absolut = 0.4 0.1-1.0 complet e 017 K/mm3 ed monocyt 17:35 e count Automat = 83.9 82.2-97 complet ed 017 fl .8 ed erythro 17:35 cyte mean corpusc ular v Automat = 33.5 31.8-35 complet ed 017 g/dl .4 ed erythro 17:35 cyte mean corpusc ular h Mean = 28.1 27-31.2 complet corpusc 017 pg ed ular 17:35 hemoglo bin (MCH) determ Lymphoc = 23.6 10-50.0 complet yte 017 % ed count, 17:35 blood, automat ed Absolut = 1.5 0.7-4.5 complet e 017 K/mm3 ed lymphoc 17:35 yte count Blood = 13.8 12.2-16 complet hemoglo 017 g/dL .2 ed bin 17:35 measure ment (mass/v olum Blood = 41.0 37.0-47 complet hematoc 017 % .0 ed rit 17:35 (volume fractio n) Granulo = 68.3 37.0-80 complet cyte 017 % .0 ed percent 17:35 age Blood = 4.3 1.8-7.8 complet granulo 017 K/mm3 ed cytes 17:35 automat ed count (numb Automat = 1.2 % 0.1-12. complet ed 017 0 ed blood 17:35 eosinop hils/10 0 leukocy t Automat = 0.1 0.0-0.4 complet ed 017 K/mm3 ed blood 17:35 eosinop hil count Baso % = 0.6 % 0.1-2.0 complet 017 ed 17:35 Automat = 0.0 0-0.2 complet ed 017 K/MM3 ed blood 17:35 basophi l count (count/ vo Urinalysis with microscopy (01-15-2017 17:35) Urine 3 - 5 O complet leukocy 017 wbc/hpf ed cindy 17:35 count (number /volume ) Urine 0.2 0.2 NEG complet urobili 017 L ed nogen 17:35 E.U./dL detecti on by test str [place]ou 5-10 0-5 complet s 017 5-10 L ed epithel 17:35 #/hpf ial cells detecti on in u Urine < = 1.005-1 complet specifi 017 1.005 .030 ed c 17:35 gravity measure ment Erythro OCC OCC 0 complet cytes 017 L ed detecti 17:35 rbc/hpf on in urine sedimen t Urine = NEG complet protein 017 NEGATIV ed 17:35 E mg/dL measure ment by automat ed t Urine = 6.0 5.0-8.5 complet pH 017 ed 17:35 Urine NEGATIV NEG complet nitrite 017 E ed 17:35 NEGATIV detecti E L on by test strip Mucus NEGATIV NEG complet detecti 017 E ed on in 17:35 NEGATIV urine E L sedimen t by lig Urine NEGATIV NEG complet ketones 017 E ed 17:35 NEGATIV detecti E L on by mg/dL automat ed cindy Glucose = NEG complet ur 017 NEGATIV ed test 17:35 E strip Urine YELLOW YELLOW complet color 017 YELLOW ed 17:35 L Urine TRACE-I NEG complet blood 017 NTACT ed detecti 17:35 TRACE-I on NTACT L Urine NEGATIV NEG complet total 017 E ed bilirub 17:35 NEGATIV in E L detecti on by test Bacteri 2+ 2+ L O complet a 017 ed detecti 17:35 on in urine sedimen t by Urine CLEAR CLEAR complet appeara 017 CLEAR L ed nce 17:35 determi [facility] Urine 9-analyte drugs of abuse screening (01-15-2017 17:35) Comment: Positive urine drug screen samples are stored for 7 days. Comment: Contact the Lab if confirmation of positives is needed. 11-hydr 01-15- POSITIV <50 complet oxy 017 E ed delta-9 17:35 POSITIV E L tetrahy ng/mL drocann abinol Comment: This is an UNCONFIRMED result. This result is for medical Comment: purposes and/or treatment only. Phencyc = <25 complet lidine 017 NEGATIV ed measure 17:35 E ng/mL ment (mass/v olume) Opiates = <300 complet 017 NEGATIV ed measure 17:35 E ng/mL ment (mass/v olume) Methado = <300 complet ne 017 NEGATIV ed measure 17:35 E ng/mL ment (mass/v olume) Cocaine = <300 complet 017 NEGATIV ed measure 17:35 E ng/g ment (mass/v olume) Serum = 200 complet or 017 NEGATIV ng/mL ed plasma 17:35 E ng/mL benzodi azepine s measure m Urine = <200 complet barbitu 017 NEGATIV ed rates 17:35 E ng/mL measure ment by screen Urine NEGATIV <1000 complet ampheta 017 E ed mine 17:35 NEGATIV screeni E L ng test ng/mL Urine test (01-15-2017 17:35) Urine = NEG complet pregnan 017 NEGATIV ed cy test 17:35 E Drugs identified in Urine by Screen method (01-15-2017 17:35) Ampheta NEGATIV <1000 complet mine 017 E ed [Presen 17:35 ce] in Urine by Screen method POSITIV <50 Abnorma complet oxy 017 E l ed delta-9 17:35 tetrahy drocann abinol [Presen ce] in Unspeci fied specime n URINE CULTURE (04-30-2013 19:37) URINE SENSITI Normal complet CULTURE 014 VITIES ed REPORT 19:37 NOT INDICAT ED FOR THIS ORGANIS M URINE SENSITI complet CULTURE 014 VITY ed REPORT 19:37 URINE >100,00 Normal complet CULTURE 014 0 ed REPORT 19:37 CFU/ml URINE COLONY complet CULTURE 014 COUNT ed REPORT 19:37 URINE LACSPLA complet CULTURE 014 CTOBACI ed REPORT 19:37 LLUS SPECIES ,QUALITATIVE URINE (04-30-2013 19:37) SPECIFI 1.006 Normal complet C 014 ed GRAVITY 19:37 PREGNAN NEGATIV Normal complet CY,QUAL 014 E ed ITATIVE 19:37 URINE Comment: Sensitivity: 20mIU/mL UA C\T\S IF INDICATED W/MICRO (04-30-2013 19:37) BACTERI 08-2 3+ /hpf Normal complet A 014 ed 19:37 SQUAMOU -08-2 15-30 Normal complet S 014 /hpf ed EPITHEL 19:37 IAL CELLS WBC 08-2 15-30 Normal complet 014 /hpf ed 19:37 RBC -08-2 3-5 Normal complet 014 /hpf ed 19:37 Specime 08-2 CLEAN complet n Type 014 CATCH ed 19:37 NITRITE -08-2 NEGATIV NEGATIV Normal complet 014 E E ed 19:37 UROBILI 08-2 NORMAL <2 Normal complet NOGEN 014 mg/dL ed 19:37 PROTEIN -08-2 NEGATIV NEGATIV Normal complet 014 E mg/dL E ed 19:37 pH 08-2 8.0 5.0-9.0 Normal complet 014 ed 19:37 BLOOD 08-2 >=1.0 NEGATIV Abnorma complet 014 mg/dL E l ed 19:37 SPECIFI 04-30-2 1.006 1.003-1 Normal complet C 014 .035 ed GRAVITY 19:37 KETONE -08-2 NEGATIV NEGATIV Normal complet 014 E mg/dL E ed 19:37 BILIRUB 08-2 NEGATIV NEGATIV Normal complet IN 014 E mg/mL E ed 19:37 GLUCOSE 08-2 NEGATIV NEGATIV Normal complet 014 E mg/dL E ed 19:37 APPEARA -08-2 CLOUDY Normal complet NCE 014 ed 19:37 COLOR 08-2 YELLOW Normal complet 014 ed 19:37 COLLECT 08-2 CLEAN Normal complet ION 014 CATCH ed METHOD 19:37 LEUKOCY 08-2 500 NEGATIV Abnorma complet TE 014 SANAM/uL E l ed ESTERAS 19:37 E MONOSCREEN (04-30-2013 19:37) MONOSCR 08-2 NEGATIV NEGATIV Normal complet EEN 014 E E ed 19:37 RAPID STREP SCREEN (04-30-2013 19:37) RAPID 04-30- TIME complet STREP 014 CALLED: ed SCREEN 19:37 RAPID 08-2 Normal complet STREP 014 4 ed SCREEN 19:37 RAPID DATE complet STREP 014 CALLED: ed SCREEN 19:[address] SANDOVAL Normal complet STREP 014 ER ed SCREEN 19:37 RAPID CALLED complet STREP 014 TO: ed SCREEN 19:37 RAPID VERO Normal complet STREP 014 AAYUSH ed SCREEN 19:37 BARIATRIC PROGRAM COORDINATOR RAPID CALLED complet STREP 014 BY: ed SCREEN 19:37 RAPID POSITIV Abnorma complet STREP 014 E FOR l ed SCREEN 19:37 GROUP A STREP ANTIGEN RAPID RESULT complet STREP 014 ed SCREEN 19:37 RAPID VERIFIE Normal complet STREP 014 D BY ed SCREEN 19:37 READ BACK OF PATIENT NAME AND RESULT RAPID VERIFIE complet STREP 014 D: ed SCREEN 19:37 RAPID 1955 Normal complet STREP 014 ed SCREEN 19:37 C.TRACH/N.GONORR BY AMP. DNA (06-26-2010 13:31) Neisser URINE complet ia 011 ed Source: 13:31 Chlamyd URINE complet ia 011 ed Source: 13:31 APTIMA Urine () Normal complet MEDIA 011 ed TYPE 13:31 N.GONOR Negativ Negativ Normal complet RHOEAE, 011 e e ed DNA 13:31 C.TRACH Negativ Negativ Normal complet OMATIS, 011 e e ed DNA 13:31 Encounters Encounter Start End Date Code Location Performer Type Date [facility] - 7 7 [facility] GAYATHRI - 7 7 [facility] - 7 7 [facility] G[facility] - 7 7 [facility] - 7 7 [facility] - 4 4 [facility] JE - 4 4 [facility] JE - 4 4 [facility] JE - 3 3 [facility] JE - 1 1 [facility]
--- OUTSIDE RECORDS SUMMARY | 2017-01-23 22:27 | External Medical Summary Rpt | CCD ---
Demographics Home Phone Preferred Language Cymraes Marital Status Unknown Baptism Affiliation Unknown Race Unknown Ethnic Group Unknown Author Author , RAMON Organization RAMON Address Unknown Phone [email or web address] Care Team Providers Care Glass Smoother Name Role Phone [facility], Unavailable Unavailable [facility] [place] Unavailable Un[facility] Unavailable Unavailable AND PRIM, [facility], [facility]available Unavailable [facility] ADELFO AOKLEY, Unavailable Unavailable ADELFO OAKLEY DR, HARRISON, Unavailable Unavailable DR JON CHAIREZ HARRISON, AHQUIST EPHRAIM MCDOWELL Unavailable Unavailable [place] [place] [facility] [place] [facility] Unavailable Unavailable INC, [facility], Unavailable Unavailable [facility] Unavailable Unavailable IMAGING ASS, [facility] MARY JANE TINSLEY, Unavailable Unavailable MARY JANE TINSLEY [facility] # Unavailable Unavailable [id number], [facility] # [id number] COLLIN HART Unavailable Unavailable [facility], Unavailable Unavailable [facility], [facility] RIC CAIN, Unavailable Unavailable RIC CAIN SHEILA M, CELESTINO, Unavailable Unavailable CATA M [facility] Unavailable Unavailable CLINIC P, [facility] [place] [facility] Unavailable Unavailable EMERGENCY PHYS, [facility] STICH FRANKIE, STIC FRANKIE Unavailable Unavailable [facility] Unavailable Unavailable #692, [facility] #[id number] [facility] # Unavailable Unavailable [id number], [facility] # [id number] Purpose Continuity of Care Document - 06-03-2007 through 2016 Problems Code Diagnosis DOS Provider Status [id number] UNS FX UNS 07-15-2016 [facility] SUB ENC INC FX ROUTINE HEAL [id number] NDSPLC FX 07-15-[address] RT HND IMAGING ASS SUB ENC FX RTN U08760G UNS FX 5TH 07-08-2016 [facility] RT MEDICAL HAND SUB IMAGING ASS ENC FX ROUTINE HEAL L75448X UNS FX UNS 07-08-2016 [facility] METACARPAL PHYSICIANS BONE GROUP INITIAL ENC CLOS FX [id number] UNS FX RT 07-08-2016 [facility] INITIAL ENC INC CLOS FRACTURE G12474 PAIN IN 07-03-2016 [place] [facility] G37061 PAIN IN 07-03-2016 [place] [facility] C61944 PAIN IN 07-03-2016 [place] [facility] FOREARM IMAGING ASS Y30367D UNSPECIFIED 07-03-2016 [place] INJURY MEDICAL RIGHT ELBOW IMAGING ASS INITIAL ENCOUNTER T84804N UNS FX 5TH 07-03-2016 [facility]ONE RT MEM HOS[facility] HAND INC INITIAL ENC CLOS FX [id number] NDSPLC FX 07-03-[address] MEDICAL BN RT HND IMAGING ASS INIT ENC CLOS FX E52247D NDSPLC FX 07-03-2016 NBA [facility], BN RT HND PLLC INIT ENC CLOS FX G4322JV UNSPECIFIED 07-03-2016 [place] IN[facility] RT MEDICAL WRIST HAND IMAGING ASS [...] SOMATIC CHIROPRACTI DYSFUNCTION C CENTE UPPER EXTREMITY N72934 ACUTE 03-19-2016 [facility] SUPPURATIVE PHYSICIANS OM W/O GROUP RUPT EAR DRUM LT EAR H6502 ACUTE 01-09-2015 [place] SEROUS [facility]ICAL OTITIS CLINIC P MEDIA LEFT EAR N390 URINARY 01-09-2015 [place] TRACT MEDICAL INFECTION CLINIC P SITE NOT SPECIFIED N760 ACUTE 01-09-2015 [place] VAGINITIS MEDICAL CLINIC P Z124 ENCOUNTER 01-09-2015 [place] OTHER MEDICAL SCREENING CLINIC P MALIG NEOPLASM CERVIX K5900 CONSTIPATIO 12-27-2014 [place] N MEDICAL UNSPECIFIED CLINIC P R197 DIARRHEA 12-27-2014 [place] UNSPECIFIED MEDICAL CLINIC P Z3002 COUNSELING 12-27-2014 [place] INSTRUCT MEDICAL NATURAL FAM CLINIC P PLAN AVOID PREG 5990 URINARY 11-23-2013 [facility] EMERGENCY INFECTION PHYS SITE NOT SPECIFIED 12581 PAIN IN 11-23-2013 [facility] [place]INT, RADIOLOGY UPPER ARM 7802 SYNCOPE AND 11-23-2013 [facility] COLLAPSE N EMERGENCY PHYS 80392 CONTUSION 11-23-2013 [facility] [place] N EMERGENCY PHYS E8888 OTHER FALL 11-23-2013 [facility] N EMERGENCY PHYS 0340 STREPTOCOCC 04-30-2013 JE AL SORE BORJA THROAT [facility] 07606 UNSPECIFIED 02-08-2013 [facility] FRANKIE CONSTIPATIO N V703 OTH GENERAL 03-12-2012 [facility] EXAMINATION AND PRIM ADMIN PURPOSES 4618 OTHER ACUTE 07-29-2011 [facility] SINUSITIS PEDIATRICS AND PRIM 4660 ACUTE 07-29-2011 [facility] BRONCHITIS PEDIATRICS AND PRIM 6253 DYSMENORRHE 06-26-2010 DR Molly WEBB,[facility] SAMANIEGO [facility] V745 SCREENING 06-26-2010 JE EXAMINATION [facility] VENEREAL DISEASE 3670 HYPERMETROP 10-18-2009 COLLIN BOYKIN V202 ROUTINE 06-05-2009 [facility] INFANT OR PEDIATRICS CHILD AND PRIMARY [facility] CHECK 3671 MYOPIA 05-14-2009 MARY JANE TINSLEY 08767 UNSPECIFIED 05-14-2009 MARY JANE TINSLEY ASTIGMATISM 462 ACUTE 12-06-2007 [facility] PHARYNGITIS PEDIATRICS AND PRIMARY CARE [facility] 4659 ACUTE URIS 12-06-2007 [facility] OF PEDIATRICS UNSPECIFIED AND PRIMARY SITE CARE PLLC V058 NEED PROPH 12-06-2007 [facility] VACC&INOCUL PEDIATRICS AT [facility] AND PRIMARY OTH SPEC CARE PLLC DISEASE V154 PERS HX 10-25-2007 DEPT FOR PSYCHOLOGIC PUBLIC HLTH AL TRAUMA PRS [facility] V0489 NEED PROPH 06-03-2007 [facility] VACCINATION PEDIATRICS &INOCULAT AND PRIMARY OTH VIRAL [...] SQUARE METERS Comment: If this patient is -[place], then multiply the Comment: result by 1.210. [...] blood 17:35 platele t mean volume uriah [place] % = 6.3 % 1.7-9.3 complet 017 [...] 017 CLEAR L ed nce 17:35 determi [facility] Urine 9-analyte drugs of abuse screening (01-15-2017 [...] complet STREP 014 AAYUSH ed SCREEN 19:37 FEED WEIGHER RAPID CALLED complet STREP 014 BY: ed [...] End Date Code Location Performer Type Date [facility]AY[facility] - 7 7 [facility] GAYATHRI - 7 7 [facility]AY[facility] - 7 7 [facility] - 7 7 [facility]AY[facility] - 7 7 [facility] SYNAGOGUE - 4 4 [facility] JE - 4 4 [facility] JE - 4 4 [facility] JE - 3 3 [facility] JE - 1 1 [facility]
[2017-01-23] MEDS ORDERED: HYDROXYZINE PAM50 MG PO (22:28)
--- OUTSIDE RECORDS SUMMARY | 2017-01-23 22:28 | External Medical Summary Rpt | CCD ---
Author Author , RAMON Elkins RAMON Address Unknown Phone [email or web address] Care Team Providers Care Electric Tape Slitter Name Role Phone [facility], Unavailable Unavailable [facility] [place] Unavailable Unavailable [facility] Unavailable Unavailable AND PRIM, [facility], Unavailable Unavailable [facility] ADELFO OAKLEY, Unavailable Unavailable ADELFO OAKLEY DR, HARRISON, Unavailable Unavailable CONTRERAS, [facility] AHQUIST EPHRA[facility] MCDOWELL Unavailable Unavailable [facility] [place] [place] [facility] Un[facility] Unavailable INC, [facility], Unavailable Unavailable [facility] Unavailable Unavailable IMAGING ASS, [facility] MARY JANE TINSLEY, Unavailable Unavailable MARY JANE TINSLEY [facility] # Unavailable Unavailable [id number], [facility] # [id number] COLLIN HART Unavailable Unavailable [facility], Unavailable Unavailable [facility], [facility] RIC CAIN, Unavailable Unavailable RIC CAIN, CATA Alegria, CELESTINO, Unavailable Unavailable CATA M [facility] Unavailable Unavailable CLINIC P, [facility] Unavailable [facility]available EMERGENCY PHYS, [facility] STICH FRANKIE, STICH FRANKIE Unavailable Unavailable [facility] Unavailable Unavailable #692, [facility] #692 [facility] # Unavailable Unavailable [id number], [facility] # [id number] Purpose Continuity of Care Document - 06-03-2007 through 2016 Problems Code Diagnosis DOS Provider Status [id number] UNS FX UNS 07-15-2016 [facility] BN SUB ENC INC FX ROUTINE HEAL [id number] NDSPLC FX 07-15-[address] RT HND IMAGING ASS SUB ENC FX RTN [id number] UNS FX 5TH 07-08-2016 [place] [facility] RT MEDICAL HAND SUB IMAGING ASS ENC FX ROUTINE HEAL [id number] UNS FX UNS 07-08-2016 [facility] BONE GROUP INITIAL ENC CLOS FX [id number] UNS FX RT 07-08-2016 [facility] INITIAL ENC INC CLOS FRACTURE Y49071 PAIN IN 07-03-2016 [place] [facility] E11134 PAIN IN 07-03-2016 [place] [facility] G47503 PAIN IN 07-03-2016 [place] [facility] FORE[facility] IMAGING ASS [id number] UNSPECIFIED 07-03-2016 [place] [facility] RIGHT [facility] IMAGING ASS INITIAL ENCOUNTER I45754Y UNS FX 5TH 07-03-2016 [facility] BONE RT MEM HOS[facility] HAND INC INITIAL ENC CLOS FX [id number] NDSPLC FX 07-03-[address] MEDICAL BN RT HND IMAGING ASS INIT ENC CLOS FX [id number] NDSPLC FX 07-03-2016 NBA KSSandy [facility], BN RT HND PLLC INIT ENC CLOS FX [id number] UNSPECIFIED 07-03-2016 [place] [facility] RT MEDICAL WRIST HAND IMAGING ASS [...] SOMATIC CHIROPRACTI DYSFUNCTION C CENTE UPPER EXTREMITY S54836 ACUTE 03-19-2016 [facility] OM W/O GROUP RUPT EAR DRUM LT EAR H6502 ACUTE 01-09-2015 [facility] P MEDIA LEFT EAR N390 URINARY 01-09-2015 [facility] TRACT [facility]ICAL INFECTION CLINIC P SITE NOT SPECIFIED N760 ACUTE 01-09-2015 [facility] P Z124 ENCOUNTER 01-09-2015 [facility] OTHER MEDICAL SCREENING CLINIC P MALIG NEOPLASM CERVIX K5900 CONSTIPATIO 12-27-2014 [facility] N MEDICAL UNSPECIFIED CLINIC P R197 DIARRHEA 12-27-2014 [facility] UNSPECIFIED MEDICAL CLINIC P Z3002 COUNSELING 12-27-2014 [facility] INSTRUCT MEDICAL NATURAL FAM CLINIC P PLAN AVOID PREG 5990 URINARY 11-23-2013 [facility]GENCY INFECTION PHYS SITE NOT SPECIFIED 79707 PAIN IN 11-23-2013 [facility] [place] [facility], RADIOLOGY UPPER ARM 7802 SYNCOPE AND 11-23-2013 [facility] COLL[facility] N EMERGENCY PHYS 29975 CONTUSION 11-23-2013 [facility] [place] N EMERGENCY PHYS E8888 OTHER FALL 11-23-2013 [facility] N [facility]ERGENCY PHYS 0340 STREPTOCOCC 04-30-2013 JE AL SORE BORJA THROAT [facility] 13862 UNSPECIFIED 02-08-2013 [facility] FRANKIE CONSTIPATIO N V703 OTH GENERAL 03-12-2012 [facility] EXAMINATION AND PRIM ADMIN PURPOSES 4618 OTHER ACUTE 07-29-2011 [facility] 4660 ACUTE 07-29-2011 [facility]IM 6253 DYSMENORRHE 06-26-2010 DR Molly WEBB,VALENTE SAMANIEGO, [facility] V745 SCREENING 06-26-2010 JE EXAMINATION [facility] VENEREAL DISEASE 3670 HYPERMETROP 10-18-2009 COLLIN BOYKIN V202 ROUTINE 06-05-2009 [facility] CHILD AND PRIMARY HEALTH CARE PLLC CHECK 3671 MYOPIA 05-14-2009 MARY JANE TINSLEY 78352 UNSPECIFIED 05-14-2009 MARY JANE TINSLEY ASTIGMATISM 462 ACUTE 12-06-2007 [facility] AND PRIMARY CARE PLLC 4659 ACUTE URIS 12-06-2007 [facility] UNSPECIFIED AND PRIMARY SITE CARE PLLC V058 NEED PROPH 12-06-2007 [place]IATRICS AT [facility] AND PRIMARY OTH SPEC CARE PLLC DISEASE V154 PERS HX 10-25-2007 DEPT FOR PSYCHOLOGIC PUBLIC HLTH AL TRAUMA PRS [facility] V0489 NEED PROPH 06-03-2007 [place] VACC[facility]ATION PEDIATRICS &INOCULAT AND PRIMARY OTH VIRAL [...] 3 54 09 09 1 15 30 MD 74 AT Ac 45 -2 -2 .0 L- 57 KI ti 80 1- 1- 00 MA 50 NS ve 94 20 20 RT 6 ON 51 10 10 0 PH JU AR LI MA E CY # 10 06 92 54 08 08 0 15 30 MD 74 AT Ac 45 -0 -2 .0 L- 51 KI ti 80 3- 1- 00 MA 12 NS ve 94 20 20 RT 8 ON 51 10 10 0 PH JU AR LI MA E CY # 10 06 92 54 03 07 2 15 30 MD 74 No Ac 45 -1 -2 .0 L- 21 t ti 80 8- 3- 00 MA 87 Av ve 94 20 20 RT 8 ai 51 10 10 la 0 PH bl AR e MA CY # 10 06 92 59 04 05 0 20 10 MD 74 DI Ac 76 -1 -0 .0 L- 30 CK ti 21 3- 3- 00 MA 25 IN ve 05 20 20 RT 9 SO 00 10 10 N 5 PH JE AR RE MA MY CY # 10 06 92 54 03 04 2 15 30 MD 74 No Ac 45 -1 -2 .0 L- 21 t ti 80 8- 5- 00 MA 87 Av ve 94 20 20 RT 8 ai 51 10 10 la 0 PH bl AR e MA CY # 10 06 92 54 03 03 2 15 30 MD 74 No Ac 45 -1 -2 .0 [...] Location Performer Type Date [facility] [place] [address] [facility] [place] [address] [facility] [place] [address] [facility] [place] [address] [facility] [place] [address] [facility]ANGELICAL - 4 4 [facility] JE - 4 4 [facility] JE - 4 4 [facility] JE - 3 3 [facility] JE - 1 1 [facility]
--- OUTSIDE RECORDS SUMMARY | 2017-01-23 22:28 | External Medical Summary Rpt | CCD ---
Demographics Preferred Language [place]ese Marital Status Unknown Adventism Affiliation Unknown Race Unknown Ethnic Group Unknown Author Author , DEANNA NAVARRO Address Unknown Phone Immunization Unable to retrieve immunization data due to connection failure with Immunization Registry. Please try again later.
--- OUTSIDE RECORDS SUMMARY | 2017-01-23 22:28 | External Medical Summary Rpt | CCD ---
Author Author , RAMON Elkins RAMON Address Unknown Phone [email or web address] Care Team Providers Care Travel Cota Name Role Phone [facility], Unavailable Unavailable [facility] [place] Unavailable Unavailable [facility] Unavailable Unavailable AND PRIM, [facility] FOR [facility], Unavailable Unavailable [facility] ADELFO OAKLEY, Unavailable Unavailable ADELFO OAKLEY DR, HARRISON, Unavailable Unavailable CONTRERAS, [facility] SELLERS AHQUIST EPHRAIM MCDOWELL Unavailable Unavailable [facility] [place], [place] [facility] [place] [facility] Unavailable Unavailable INC, [facility], Unavailable Unavailable [facility] Unavailable Unavailable IMAGING ASS, [facility] MARY JANE TINSLEY, Unavailable Unavailable MARY JANE TINSLEY [facility] # Unavailable Unavailable [id number], [facility] # [id number] COLLIN HART Unavailable Unavailable [facility], Unavailable Unavailable [facility], [facility] RIC CAIN, Unavailable Unavailable RIC CAIN, CATA Alegria, CELESTINO, Unavailable Unavailable CATA M [facility] Unavailable Unavailable CLINIC P, [facility] CLINIC P [facility] Unavailable Unavailable EMERGENCY PHYS, [facility] STICH FRANKIE, STICH FRANKIE Unavailable Unavailable [facility] Unavailable Unavailable #692, [facility] #692 [facility] # Unavailable Unavailable [id number], [facility] # [id number] Purpose Continuity of Care Document - 06-03-2007 through 2016 Problems Code Diagnosis DOS Provider Status [id number] UNS FX UNS 07-15-2016 [facility] SUB ENC INC FX ROUTINE HEAL [id number] NDSPLC FX 07-15-[address] RT HND IMAGING ASS SUB ENC FX RTN [id number] UNS FX 5TH 07-08-2016 [place] [facility] BN RT MEDICAL HAND SUB IMAGING ASS ENC FX ROUTINE HEAL I14815N UNS FX UNS 07-08-[address] [facility] BONE GROUP INITIAL ENC CLOS FX [id number] UNS FX RT 07-08-2016 [facility] INITIAL ENC INC CLOS FRACTURE H61601 PAIN IN 07-03-2016 [place] [facility] Y70581 PAIN IN 07-03-2016 [place] [facility] IM[facility] ASS I25971 PAIN IN 07-03-2016 [place] [facility] FOREARM IMAGING ASS B14976P UNSPECIFIED 07-03-2016 [place] IN[facility] RIGHT [facility] IMAGING ASS INITIAL ENCOUNTER F61689G UNS FX 5TH 07-03-2016 [facility] BONE RT MEM HOSP HAND INC INITIAL ENC CLOS FX [id number] NDSPLC FX 07-03-[address] MEDICAL BN RT HND IMAGING ASS INIT ENC CLOS FX [id number] NDSPLC FX 07-03-2016 NBA MISandy [facility], BN RT HND PLLC INIT ENC CLOS FX [id number] UNSPECIFIED 07-03-2016 [place] INJURY RT MEDICAL WRIST [...] SOMATIC CHIROPRACTI DYSFUNCTION C CENTE UPPER EXTREMITY D40037 ACUTE 03-19-[address] [facility] SUPP[facility]IVE PHYSICIANS OM W/O GROUP RUPT EAR DRUM LT EAR H6502 ACUTE 01-09-2015 [facility] P MEDIA LEFT EAR N390 URINARY 01-09-2015 [facility] TRACT [facility] INFECTION CLINIC P SITE NOT SPECIFIED N760 ACUTE 01-09-2015 [facility] P Z124 ENCOUNTER 01-09-2015 [facility] OTHER MEDICAL SCREENING CLINIC P MALIG NEOPLASM CERVIX K5900 CONSTIPATIO 12-27-2014 [facility] N MEDICAL UNSPECIFIED CLINIC P R197 DIARRHEA 12-27-2014 [facility] UNSPECIFIED MEDICAL CLINIC P Z3002 COUNSELING 12-27-2014 [facility] INSTRUCT MEDICAL NATURAL FAM CLINIC P PLAN AVOID PREG 5990 URINARY 11-23-2013 [facility] N EMERGENCY INFECTION PHYS SITE NOT SPECIFIED 69678 PAIN IN 11-23-2013 [facility] [place] [facility], RADIOLOGY UPPER ARM 7802 SYNCOPE AND 11-23-2013 [facility] COLL[facility]SE N EMERGENCY PHYS 15488 CONTUSION 11-23-2013 [facility] [place] N EMERGENCY PHYS E8888 OTHER FALL 11-23-2013 [facility] N EMERGENCY PHYS 0340 STREPTOCOCC 04-30-2013 JE AL SORE BORJA THROAT [facility] 83691 UNSPECIFIED 02-08-2013 [facility] FRANKIE CONSTIPATIO N V703 OTH GENERAL 03-12-2012 [facility] EXAMINATION AND PRIM ADMIN PURPOSES 4618 OTHER ACUTE 07-29-2011 [facility]IATRICS AND PRIM 4660 ACUTE 07-29-2011 [facility] BRONCH[facility]IS PEDIATRICS AND PRIM 6253 DYSMENORRHE 06-26-2010 DR Molly WEBB,VALENTE SAMANIEGO, [facility] V745 SCREENING 06-26-2010 JE EXAMINATION [facility] VENEREAL DISEASE 3670 HYPERMETROP 10-18-2009 COLLIN BOYKIN V202 ROUTINE 06-05-2009 [facility] [place] [facility] PEDIATRICS CHILD AND PRIMARY HEALTH CARE PLLC CHECK 3671 MYOPIA 05-14-2009 MARY JANE TINSLEY 23097 UNSPECIFIED 05-14-2009 MARY JANE TINSLEY ASTIGMATISM 462 ACUTE 12-06-2007 [facility] [place] PH[facility]IS [facility]IATRICS AND PRIMARY CARE PLLC 4659 ACUTE URIS 12-06-2007 [facility] [place]IATRICS UNSPECIFIED AND PRIMARY SITE CARE PLLC V058 NEED PROPH 12-06-2007 [facility] VACC&[facility]OCUL PEDIATRICS AT [facility] AND PRIMARY OTH SPEC CARE PLLC DISEASE V154 PERS HX 10-25-2007 DEPT FOR PSYCHOLOGIC PUBLIC HLTH AL TRAUMA PRS [facility] V0489 NEED PROPH 06-03-2007 [place] VACCINATION PEDIATRICS &INOCULAT AND PRIMARY OTH VIRAL [...] 3 54 09 09 1 15 30 NE 74 AT Ac 45 -2 -2 .0 L- 57 KI ti 80 1- 1- 00 MA 50 NS ve 94 20 20 RT 6 ON 51 10 10 0 PH JU AR LI MA E CY # 10 06 92 54 08 08 0 15 30 NE 74 AT Ac 45 -0 -2 .0 L- 51 KI ti 80 3- 1- 00 MA 12 NS ve 94 20 20 RT 8 ON 51 10 10 0 PH JU AR LI MA E CY # 10 06 92 54 03 07 2 15 30 NE 74 No Ac 45 -1 -2 .0 L- 21 t ti 80 8- 3- 00 MA 87 Av ve 94 20 20 RT 8 ai 51 10 10 la 0 PH bl AR e MA CY # 10 06 92 59 04 05 0 20 10 NE 74 DI Ac 76 -1 -0 .0 L- 30 CK ti 21 3- 3- 00 MA 25 IN ve 05 20 20 RT 9 SO 00 10 10 N 5 PH JE AR RE MA MY CY # 10 06 92 54 03 04 2 15 30 NE 74 No Ac 45 -1 -2 .0 L- 21 t ti 80 8- 5- 00 MA 87 Av ve 94 20 20 RT 8 ai 51 10 10 la 0 PH bl AR e MA CY # 10 06 92 54 03 03 2 15 30 NE 74 No Ac 45 -1 -2 .0 [...] End Date Code Location Performer Type Date [facility] [place] [address] [facility] [place] [address] [facility] [place] [address] [facility] [place] [address] [facility] [place] [address] [facility] ALEVISM - 4 4 [facility] JE - 4 4 [facility] JE - 4 4 [facility] JE - 3 3 [facility] JE - 1 1 [facility]
--- OUTSIDE RECORDS SUMMARY | 2017-01-23 22:28 | External Medical Summary Rpt | CCD ---
Demographics Preferred Language Indonesian Marital Status Unknown Anglican Affiliation Unknown Race Unknown Ethnic Group Unknown Author Author , DEANNA NAVARRO Address Unknown Phone Immunization Unable to retrieve immunization data due to connection failure with Immunization Registry. Please try again later.
--- OUTSIDE RECORDS SUMMARY | 2017-01-23 22:28 | External Medical Summary Rpt ---
Author Author RAMON Arellano, [employer] Organization [employer] Address Unknown Phone Unavailable Results Comprehensive metabolic 2000 panel in Serum or Plasma Observa Value Referen Units Interpr Notes Date tion ce etation Range Albumin/G 1.1 - 1.8 No Normal No Jan 15 lobulin informati informati 2016 5:35 [Mass on in on in PM ratio] in source source Serum or data data Plasma Albumin 3.4 - 5.0 gm/dL Normal No Jan 15 [Mass/vol informati 2016 5:35 ume] in on in PM Serum or source Plasma data Alkaline 46 - 116 U/L Normal No Jan 15 phosphata informati 2016 5:35 se on in PM [Enzymati source c data activity/ volume] in Serum or Plasma Bilirubin 0.2 - 1.0 mg/dL Normal No Jan 15 .total informati 2016 5:35 [Mass/vol on in PM ume] in source Serum or data Plasma Urea 7 - 18 mg/dL Low No Jan 15 nitrogen informati 2016 5:35 [Mass/vol on in PM ume] in source Serum or data Plasma Calcium 8.5 - mg/dL Normal No Jan 15 [Mass/vol 10.1 informati 2016 5:35 ume] in on in PM Serum or source Plasma data Chloride 98 - 107 mmoL/L Normal No Jan 15 [Moles/vo informati 2016 5:35 lume] in on in PM Serum or source Plasma data Carbon 21.0 - mmoL/L Normal No Jan 15 dioxide, 32.0 informati 2017 5:35 total on in PM [Moles/vo source lume] in data Serum or Plasma Creatinin 0.55 - mg/dL Normal No Jan 15 e 1.02 informati 2016 5:35 [Mass/vol on in PM ume] in source Serum or data Plasma Creatinin 50 - 200 ML/MIN Normal No Jan 15 e renal informati 2016 5:35 clearance on in PM source predicted data by Cockcroft -Gault formula Estimated 59- ML/MIN No REFERENCE Jan 15 informati RANGE: 2017 5:35 glomerula on in >60 PM r source ML/MIN/1. filtratio data 73 SQUARE n rate METERSIf (GF this patient is -A merican, then multiply theresult by 1.210. Globulin 1.3 - 3.2 gm/dL Normal Jan 15 [Mass/vol informati 2016 5:35 ume] in on in PM Serum source data Glucose 74 - 106 mg/dL High Jan 15 [Mass/vol informati 2016 5:35 ume] in on in PM Serum or source Plasma data Potassium 3.5 - 5.1 mmoL/L Normal Jan 152016 5:35 [Moles/vo on in PM lume] in source Serum or data Plasma Sodium 136 - 145 mmoL/L Normal Jan 15 [Moles/vo ati 2016 5:35 lume] in on in PM Serum or source Plasma data Aspartate 15 - 37 U/L Low Jan 152016 5:35 aminotran on in PM sferase source [Enzymati data c activity/ volume] in Serum or Plasma Alanine 12 - 78 U/L Normal Jan 15 aminotran informati 2016 5:35 sferase on in PM [Enzymati source c data activity/ volume] in Serum or Plasma Protein 6.4 - 8.2 gm/dL Normal Jan 15 [Mass/vol informati 2016 5:35 ume] in on in PM Serum or source Plasma data CBC W Auto Differential panel in Blood Observa Value Referen Units Interpr Notes Date tion ce etation Range Basophils 0 - 0.2 K/MM3 Normal Jan 152016 5:35 [#/volume on in PM ] in source Blood by data Automated count Basophils 0.1 - 2.0 % Normal Jan 15 / informati 2016 5:35 leukocyte on in PM s in source Blood by data Automated count Eosinophi 0.0 - 0.4 K/mm3 Normal Jan 15 ls informati 2016 5:35 [#/volume on in PM ] in source Blood by data Automated count Eosinophi 0.1 - % Normal Jan 15 ls/100 12.0 informati 2016 5:35 leukocyte on in PM s in source Blood by data Automated count Granulocy 1.8 - 7.8 K/mm3 Normal Jan 15 cindy informati 2016 5:35 [#/volume on in PM ] in source Blood by data Automated count Granulocy 37.0 - % Normal No Jan 15 cindy/100 80.0 informati 2016 5:35 leukocyte on in PM s in source Blood by data Automated count Hematocri 37.0 - % Normal No Jan 15 t [Volume 47.0 informati 2016 5:35 on in PM Fraction] source of Blood data Hemoglobi 12.2 - g/dL Normal No Jan 15 n 16.2 informati 2016 5:35 [Mass/vol on in PM ume] in source Blood data Lymphocyt 0.7 - 4.5 K/mm3 Normal No Jan 15 informati 2016 5:35 [#/volume on in PM ] in source Unspecifi data ed specimen by Automated count Lymphocyt 10 - 50.0 % Normal No Jan 15 informati 2016 5:35 [#/volume on in PM ] in source Unspecifi data ed specimen by Automated count Erythrocy 27 - 31.2 pg Normal No Jan 15 te mean inform2016 5:35 corpuscul on in PM ar source hemoglobi data n [Entitic mass] Erythrocy 31.8 - g/dl Normal No Jan 15 te mean 35.4 informati 2016 5:35 corpuscul on in PM ar source hemoglobi data n concentra tion [Mass/vol ume] by Automated count Erythrocy 82.2 - fl Normal Jan 15 te mean 97.8 informati 2016 5:35 corpuscul on in PM ar volume source [Entitic data volume] by Automated count Monocytes 0.1 - 1.0 K/mm3 Normal Jan 152016 5:35 [#/volume on in PM ] in source Blood by data Automated count Monocytes 1.7 - 9.3 % Normal No Jan 15 / informati 2016 5:35 leukocyte on in PM s in source Blood by data Automated count Platelet 7.4 - fl Low No Jan 15 mean 10.4 informati 2016 5:35 volume on in PM [Entitic source volume] data in Blood by Automated count Platelets 142 - 424 K/mm3 Normal No Jan 15ati 2016 5:35 [#/volume on in PM ] in source Blood data Erythrocy 4.2 - 5.4 M/mm3 Normal No Jan 15 cindy informati 2016 5:35 [#/volume on in PM ] in source Amniotic data fluid Erythrocy 11.5 - % Normal No Jan 15 te 17.5 informati 2016 5:35 distribut on in PM ion width source [Entitic data volume] by Automated count Leukocyte 4.8 - K/MM3 Normal No Jan 15 s 10.8 informati 2016 5:35 [#/volume on in PM ] in source Blood data Drugs identified in Urine by Screen method Observa Value Referen Units Interpr Notes Date tion ce etation Range Positive urine drug screen samples are stored for 7 days. Contact the Lab if confirmation of positives is needed. Ampheta NEGATIV <1000 ng/mL No Jan 15 mine E informa informa 2016 [Presen tion in tion in 5:35 PM ce] in source source Urine data data by Screen method Barbitura <200 ng/mL No Jan 15 cindy informati informati 2016 5:35 [Mass/vol on in on in PM ume] in source source Urine by data data Screen method Benzodiaz 200 ng/mL ng/mL No Jan 15 epines informati informati 2016 5:35 [Mass/vol on in on in PM ume] in source source Serum or data data Plasma by Screen method Cocaine <300 ng/g No Jan 15 [Mass/vol informati informati 2016 5:35 ume] in on in on in PM Unspecifi source source ed data data specimen Methadone <300 ng/mL No Jan 15 informati informati 2016 5:35 [Mass/vol on in on in PM ume] in source source Unspecifi data data ed specimen Opiates <300 ng/mL No Jan 15 [Mass/vol informati informati 2016 5:35 ume] in on in on in PM Unspecifi source source ed data data specimen Phencycli <25 ng/mL No No Jan 15 dine informati informati 2016 5:35 [Mass/vol on in on in PM ume] in source source Unspecifi data data ed specimen 11-Hydr POSITIV <50 ng/mL Abnorma This is Jan 15 oxy E l an 2017 delta-9 UNCONFI 5:35 PM RMED tetrahy result. drocann This abinol result [Presen is for ce] in medical Unspeci purpose fied s specime and/or n treatme nt only. Choriogonadotropin.beta subunit [Units] in 24 hour Urine Observa Value Referen Units Interpr Notes Date tion ce etation Range Choriogon NEG No No No Jan 15 adotropin informati informati informati 2016 5:35 .beta on in on in on in PM subunit source source source [Units] data data data in 24 hour Urine ELBLT Observa Value Referen Units Interpr Notes Date tion ce etation Range TEXT BUDDHISM No No No No Nov 23 [facility] informa informa informa informa 2013 IS tion in tion in tion in tion in 4:14 PM [facility] source source source source D\\.br\\8 data data data data [place] \\ .br\\[place] [address]\\. br\\[phone] 1\\.br\\\\ .br\\[facility]\\ .br\\100 1-0176\\ .br\\\\.b r\\Helen d\\.br\\\\ .br\\PAT IENT NAME: LEX SCHROEDER 236\\.br \\: [id number]\\. br\\ATTE NDING: DATE OF EXAM: 4\\.br\\P RIMARY CARE: NOT IN DICTION MONICA LOCATIO N:\\.br\\ \\.br\\OR DERING PHYSICI AN: JUANCHO MADISON MD\\.br\\ PROCEDU RE(s): ELBOW LEFT\\.b r\\ORDER NUMBER( s): [id number] 61\\.br\\ \\.br\\CC :\\.br\\\\ .br\\\\.b r\\\\.br\\ \\.br\\EX AM: [...] ------- ------- ------- ------- -RUN DATE: 4 [employer] LIVE* * PAGE 1RUN TIME: 620 Specime n Inquiry ------- ------- ------- ------- ------- ------- ------- ------- ------- ------- ------- ------- ------- -ALLEI T: LEX SCHROEDER ACCT: [id number] LOC: ED U: [id number] AGE/SX: 18/F ROOM: RE 4REG DR: JUANCHO MADISON MD : [id number] BED: DIS: STATUS: DEP ER TLOC:-- ------- ------- ------- ------- ------- ------- ------- ------- ------- ------- ------- ------- ------S PEC #: [id number] DAISY: STATUS: COMP REQ #: [id number] RECD: SUBM DR: JUANCHO MADISON [facility] E: URINE ENTR: [address]: ASTRID IN DICTION ARYSPDE SC: CCMSORD ERED: UC----- [...] Normal No Oct 1 RINE informa informa 2013 tion in tion in 3:44 PM source source data data APPEARA Slightl . No Normal No Oct 1 NCE,URI y informa informa 2013 NE Cloudy tion in tion in 3:44 PM source source data data GLUCOSE Negativ NEGATIV No Normal No Oct 1 , URINE e E informa informa 2014 (UA) tion in tion in 3:44 PM source source data data BILIRUB Negativ NEGATIV No Normal No Oct 1 IN,URIN e E informa informa 2014 E tion in tion in 3:44 PM source source data data KETONES SMALL NEGATIV No Abnorma No Oct 1 ,URINE E informa l informa 2014 tion in tion in 3:44 [...] Normal No Oct 1 NOGEN,U informa informa 2014 RINE tion in tion in 3:44 PM [...] Normal URINE Oct 1 URINE informa CULTURE 2014 tion in AND 4:05 PM source SENSITI data VITY ORDERED . RBC,URI 0-3 0 - 3 No Normal No Oct 1 NE informa informa 2014 tion in tion in 4:05 PM source source data data EPITHEL 4-10 0 - 3 No Normal No Oct 1 IAL informa inform2013 CELL, tion in tion in 4:05 PM URINE source source data data BACTERI 1+ NONE No Normal No Oct 1 A,URINE SEEN inform informa 2013 tion in tion in 4:05 PM source source data data MUCUS,U TRACE NONE No Normal No Oct 1 RINE SEEN informa informa 2013 tion in tion in 4:05 PM source source data data UPREG Observa Value Referen Units Interpr Notes Date tion ce etation Range UPREG NEGATIV . No Normal No Oct 1 E inform informa 2013 tion in tion in 3:52 [...] fL Normal No Oct 1 CORPUSC 99.0 inform2013 ULAR tion in 3:25 PM VOLUME source data MEAN 28.1 27.0 - uug Normal No Oct 1 CORPUSC 31.0 inform2013 ULAR tion in 3:25 PM HEMOGLO source BIN data MEAN 32.6 30.0 - g/dL Normal No Oct 1 CORPUSC 37.0 inform2013 ULAR tion in 3:25 PM HGB source CONC data RED 12.5 11.5 - % Normal No Oct 1 CELL 14.5 informa 2013 DISTRIB tion in 3:25 PM UTION source WIDTH data PLATELE 315 130 - THOUS Normal No Oct 1 T COUNT 400 inform2013 tion in 3:25 PM source data NEUTROP [...] Range URINE LACSPLA No No No No Mar 11 CULTURE CTOBACI informa informa informa informa 2013 REPORT LLUS tion in tion in tion in tion in 6:33 AM SPECIES source source source source data data data data URINE COLONY No No No No Mar 11 CULTURE COUNT informa informa informa informa 2013 REPORT tion in tion in tion in tion in 6:33 AM source source source source data data data data URINE >100,00 No CFU/ml Normal No Mar 11 CULTURE 0 informa informa 2013 REPORT tion in tion in 6:33 AM source source data data URINE SENSITI No No No No Mar 11 CULTURE VITY informa informa informa informa 2014 REPORT tion in tion in tion in tion in 6:33 AM source source source source data data data data URINE SENSITI No No Normal No Mar 11 CULTURE VITIES informa informa informa 2013 REPORT NOT tion in tion in tion [...] No Apr 8 NCE informa informa informa 2014 tion in tion [...] No Apr 8 C 1.035 informa informa 2013 GRAVITY tion in tion in 8:00 PM [...] mg/dL Normal No Apr 8 NOGEN informa 2014 tion in 8:00 PM source data NITRITE [...] Normal No Apr 8 A informa informa 2014 tion in tion in [...] Apr 8 EEN E E informa informa 2014 tion in tion in 7:55 PM source [...] STREP AAYUSH informa informa informa 2014 SCREEN FORM SETTER tion in tion in tion in 7:55 [...] data RAPID DATE No No No No Apr 8 STREP CALLED: informa informa informa informa 2014 SCREEN tion in tion in tion in tion in 7:55 PM source source source source data data data data RAPID No No Normal No Apr 8 STREP 4 informa informa informa 2014 SCREEN tion in tion in tion in 7:55 PM source source source data data data RAPID TIME No No No No Apr 8 STREP CALLED: informa informa informa informa 2014 SCREEN tion in tion in tion in tion in 7:55 PM source source source source data data data data RAPID 1954 No No Normal No Apr 8 STREP informa informa informa 2014 SCREEN tion in tion in tion in 7:55 PM source source source data data data RAPID VERIFIE No No No No Apr 8 STREP D: informa informa informa informa 2014 SCREEN tion in tion in tion in tion in 7:55 PM source source source source data data data data RAPID VERIFIE No No Normal No Apr 8 STREP D BY informa informa informa 2014 SCREEN READ tion in tion in tion in 7:55 PM BACK OF source source source data data data PATIENT NAME AND RESULT RAPID RESULT No No No No Apr 8 STREP informa informa informa informa 2014 [...] 5:11 PM D, [place] source source source ([facility]) data data data RAPID CALLED No [...] Negativ Negativ No Normal TEST June 28 OMATIS e e informa INFORMA 2010 DNA tion in TION: 5:08 PM source Chlamyd data ia trachom atis Amplifi ed DetectP ositive results are confirm ed using an alterna tive nucleic acid target in accorda nce with the Centers for Disease Control Guideli [...] an alterna tive nucleic acid target in accorda nce with the Centers for Disease Control Guideli ne: "Chlamy kee trachom atis and Neisser iagonor rhoeae 2001 Screeni ng Guideli emil."Cu lture may be require d in certain clinica l context s fordiag nosing Neisser ia gonorrh oeae infecti ons to meetapp licable laws and regulat ions.Pe rformed by MARIELA porras,[address] [place] [address] [phone] w.[facility], Keira Stewart MD, Lab. Directo r APTIMA [...]
--- OUTSIDE RECORDS SUMMARY | 2017-01-23 22:28 | External Medical Summary Rpt ---
[...] Notes Date tion ce etation Range TEXT CHRISTIANITY No No No No Nov 23 [facility] informa informa informa informa 2013 IS tion in tion in tion in tion in 4:14 PM [facility] source source source source D\\.br\\8 data data data data [place] \\ .br\\[place] [address]\\. br\\[id number] [phone] 1\\.br\\\\ .br\\[facility]\\ .br\\100 1-0176\\ .br\\\\.b r\\Helen d\\.br\\\\ .br\\PAT IENT NAME: LEX SCHROEDER 236\\.br \\: [id number]\\. br\\ATTE NDING: DATE OF EXAM: 4\\.br\\P RIMARY CARE: NOT IN DICTION MONICA LOCATIO N:\\.br\\ \\.br\\OR DERING PHYSICI AN: JUANCHO MADISON MD\\.br\\ PROCEDU RE(s): ELBOW LEFT\\.b r\\ORDER NUMBER( s): [id number] 61\\.br\\ \\.br\\CC :\\.br\\\\ .br\\\\.b r\\\\.br\\ \\.br\\EX AM: [...] ------- ------- ------- ------- -RUN DATE: 4 [employer] LIVE* * PAGE 1RUN TIME: 620 Specime n Inquiry ------- ------- ------- ------- ------- ------- ------- ------- ------- ------- ------- ------- ------- -ALLIE T: LEX SCHROEDER ACCT: [id number] LOC: ED U: [id number] AGE/SX: 18/F ROOM: RE 4REG DR: JUANCHO MADISON MD : 995 BED: DIS: STATUS: DEP ER TLOC:-- ------- ------- ------- ------- ------- ------- ------- ------- ------- ------- ------- ------- ------S PEC #: [id number] DAISY: STATUS: COMP REQ #: [id number] RECD: SUBM DR: JUANCHO MADISON [facility] [place]: URINE ENTR: [address]: ASTRID [...] STREP AAYUSH informa informa informa 2014 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 Directo r APTIMA [...]
[2017-01-23] MEDS ORDERED: MONODOX100 MG PO (22:29)
--- NOTE | 2017-01-23 22:51 | Emergency Room Report ---
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 PER POLICE/FR PT HAS SELF INFLICTED LAC L WRIST AND MIRTAZIPINE/NAPROXEN INGESTION IN ATTEMPT TO HARM HERSELF. 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 N Clinical Suspician of Infection? N Mental Status: 1 - Regular (Normal Baseline) Sepsis Risk:Low Sepsis Risk Have you (or family members/close friends) recently traveled outside the [place]? N If Yes, where/when: Have you had exposure to infectious disease within the past month? N TB? Other? Specify: Source patient, RN notes reviewed, police, EMS, old records Exam Limitations no limitations Comment pt with recent admit at [facility] for depression and reports upset with sig other and cut lt wrist and took extra pschy meds as noted above - pt wrote note which was reviewed - she now states she regrets her actions and has op planned Cardiac Chest Pain Chest pain indicative of cardiac No Timing/Duration this evening Severity moderate ALLERGIES Coded Allergies: No Known Allergies (03/28/16) Home Medications Active Scripts Naproxen (Naprosyn 500MG Tab) 500 MG PO Q12HP #10 TAB Ref 1 Prov: 01/15/17 Reported Medications Mirtazapine 15 MG PO DAILY Hydroxyzine Pamoate 50 MG PO BID PRN ANZIETY DOXYCYCLINE MONOHYDRATE (Monodox) 100 MG PO BID History Medical History General CAD? No Angina: No LA: No Hypertension? No Hyperlipidemia? No CHF? No DVT? No PE? No COPD? No Asthma? No Anemia? No GERD? No Gastric ulcers? No GI Bleed? No Hernia? No Thyroid Problems? No Hypothyroidism? No CVA? No Seizures? No Diabetes? No Renal Insuffiency? No End Stage Renal Disease? No UTI? No Stones? No BPH? No GB Disease: No Nephritic Syndrome? No Asplenia? No Hepatitis? No Sickle Cell Disease? No Arthritis? No Migraines? No Cataracts? No Glaucoma? No MRSA? No HIV? No TB? No Anxiety? No Depression? No Cancer? No More? No Immunization Hx DT/Tetanus 1-4 Years Ago Surgical Hx Previous Surgery?Y Oral Surgery EXAMINER OF CURRENCY Hx LMP 1 Week Ago Social History Smoking Hx Smoker: Current Every Day Smoker Tobacco: Yes Type Cigarettes Packs/day < 1 Pack Alcohol Alcohol: Yes Drugs none Review of Systems All Other Systems Reviewed and Negative Constitutional denies fever Eyes denies drainage ENT denies: ear discharge, epistaxis, throat pain. Respiratory denies cough, denies shortness of breath, denies wheezing Cardiovascular denies chest pain, denies syncope Gastrointestinal denies abdominal pain, denies diarrhea, denies vomiting Genitourinary denies: dysuria, frequency, hesitancy, hematuria. Musculoskeletal denies back pain, denies joint pain, denies joint swelling, denies neck pain Skin see HPI, denies rash, other Psychiatric/Neurological see HPI, depressed, denies seizure Physical Exam Vital Signs Vital Signs Date Time Temp Pulse Resp B/P Pulse O2 O2 Flow FiO2 Ox Delivery Rate 01/23 2348 78 18 107/67 98 01/23 2207 97.9 85 18 106/59 100 - WBC >12,000 or <4,000 or 10% bands? 2 or more SIRS Criteria Met? B/P:107/67 MAP:74 Creatinine >2.0? UA output<0.5ml/kg/hr for 2 hrs? Platelet count >100,000? Lactate >2.0mmol/1? INR >1.2 or PTT > than 60 sec? Evidence of Organ Dysfunction? Provider documented clinical suspician of infection? N Sepsis Criteria Count: 0 Sepsis Risk: Low Sepsis Risk General Appearance no apparent distress Eye Exam - bilateral eye PERRL, bilateral eye EOMI Ear, Nose, Throat normal ENT inspection Neck supple Respiratory Status No: respiratory distress. Lung Sounds bilateral: lungs clear. Cardiovascular regular rate/rhythm, systolic murmur Peripheral Pulses Pulses normal Yes Gastrointestinal soft Extremities normal inspection Strength 4 Upper Ext (L), 4 Upper Ext (R), 4 Lower Ext (L), 4 Lower Ext (R) Neurologic alert, stock counter II-XII nml as tested, no motor/sensory deficits Glascow Coma Scale Glascow Coma Scale Response Value EYE response: 4 Spontaneously 4 MOTOR response: 6 OBEYS 6 VERBAL response: 5 Oriented & Converses 5 Total 15 Mental status depressed affect Skin laceration(s), 2 cm lac lt wrist - neurovascular ok /tendon ok Suicide Risk Assessment Suicide Assessment indicated? Yes Risk Assessment Score Risk Assessment Score Response Value DETAILS: Vague 1 AVAILABILITY OF MEANS: Not available;have to get 1 TIME: No specific time-future 1 LETHALITY OF METHOD: Pills or slashed wrists 1 CHANCE OF INTERVENTION: Others present most time 1 PREVIOUS SUICIDE ATTEMPS: None or one low lethality 1 STRESS: Mod reaction to loss/chng 2 COPING BEHAVIOR: Some daily act disrupted 2 DEPRESSION: Mod, some sadness/lonely 2 SUICIDE RESOURCES: Not available/hostile 3 COMMUNICATION ASPECTS: Directly express feeling 1 LIFESTYLE: Acting out behavior 2 MEDICAL STATUS: No sig. medical problems 1 Total 19 Level of Risk Determined: Med-(-) Nursing notified of risk? Yes Medical Decision Making LABS/Meds/Orders Pt receiving controlled substance in ED? No Results/Orders Laboratory Tests 01/23/17 2330: Opiates Screen NEGATIVE, Urine Methadone Screen NEGATIVE, Barbiturates NEGATIVE, Phencyclidine Screen NEGATIVE, Amphetamines Screen NEGATIVE, Benzodiazepines Screen NEGATIVE, Cocaine Screen NEGATIVE, Marijuana (THC) Screen POSITIVE H, Urine Color DK YELLOW, Urine Appearance CLOUDY, Urine pH 5.5, Ur Specific Morgan >= 1.030, Urine Protein 2+ H, Urine Ketones 3+ H, Urine Blood 3+ H, Urine Nitrate NEGATIVE, Urine Bilirubin NEGATIVE, Urine Urobilinogen 0.2, Ur Leukocyte Esterase NEGATIVE, Urine RBC 20-50, Ur Squamous Epith Cells 50-100, Urine Glucose NEGATIVE 01/23/17 2215: Sodium 139, Potassium 3.7, Chloride 102, Carbon Dioxide 27, BUN 16, Creatinine 0.9, Estimated Creat Clear 76, Estimated GFR (MDRD) 78, Glucose 113 H, Calcium 9.5, Total Bilirubin 0.6, AST 27, ALT 23, Alkaline Phosphatase 57, Total Protein 7.7, Albumin 5.0, Globulin 2.7, Albumin/Globulin Ratio 1.9 H, WBC 8.7, RBC 4.78 , Hgb 13.7, Hct 41.2, MCV 86.2, RDW 12.8, Plt Count 305, MPV 6.6 L, Gran % 76.4 , Gran # 6.6, Lymphocytes % 18.1, Monocytes % 4.9, Eosinophils % 0.4, Basophils % 0.3, Lymphocytes # 1.6, Monocytes # 0.4, Eosinophils # 0.0, Basophils # 0.0, PUBS MCHC 33.2, MCH 28.6, Salicylates 2.5 L, Acetaminophen 0 L, Alcohols 0 Current Medication Orders Sig/Ashvin Start time Last Medication Dose Route Stop Time Status Admin Sodium Chloride 10 ML PRN PRN 01/23 2230 AC IV 01/24 2217 Orders Procedure Date/time Status DERMABOND WOUND CLOSURE 01/23 2257 Active IV SALINE LOCK 01/23 2217 Active URINALYSIS/COMPLETE 01/23 2217 Complete SALICYLATE 01/23 2217 Complete URINE 01/23 2217 Complete DRUG ABUSE SCREEN (TRIAGE) 01/23 2217 Complete CBC WITH AUTO DIFF 01/23 2217 Complete CHEM 12 PROFILE 01/23 2217 Complete ALCOHOL 01/23 2217 Complete Acetaminophen 01/23 2217 Complete Procedures Laceration/Wound Repair Laceration/Wound Repair Risks/benefits discussed with pt/guardian? Yes Tetanus status up to date Wound Location wrist Wound Length (cm) 2 Wound's Depth, Shape superficial Wound Explored no FB identified Risk of retained FB explained to pt/guardian? No Irrigated w/ Saline (ccs) 0 Wound Prep Hibiclens, Saline Anesthesia none Volume Anesthetic (ccs) 0 Wound Debrided none Wound Repaired With Dermabond Layer Closure No Total Number Sutures 0 Sterile Dressing Applied Yes Splint Applied No Sling Applied No Departure Departure Time of Disposition 3 Disposition DC/XFER from [facility] Clinical Impression Primary Impression: Suicidal ideations Secondary Impressions: Depression Qualifiers: Depression Type: unspecified Qualified Code: F32.9 - Major depressive disorder, single episode, unspecified Laceration Condition STABLE Patient Instructions DI for Depression -- Adult Additional Instructions [facility] Counseling Counseled pt/family regarding diagnosis, test results ED Critical Care [place] Care [place] at 0038
--- NOTE | 2017-01-23 22:51 | Emergency Room Report ---
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 PER POLICE/FR PT HAS SELF INFLICTED LAC L WRIST AND MIRTAZIPINE/NAPROXEN INGESTION IN ATTEMPT TO HARM HERSELF. 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 N Clinical Suspician of Infection? N Mental Status: 1 - Regular (Normal Baseline) Sepsis Risk:Low Sepsis Risk Have you (or family members/close friends) recently traveled outside the [place]? N If Yes, where/when: Have you had exposure to infectious disease within the past month? N TB? Other? Specify: Source patient, RN notes reviewed, police, EMS, old records Exam Limitations no limitations Comment pt with recent admit at [facility] for depression and reports upset with sig other and cut lt wrist and took extra pschy meds as noted above - pt wrote note which was reviewed - she now states she regrets her actions and has op planned Cardiac Chest Pain Chest pain indicative of cardiac No Timing/Duration this evening Severity moderate ALLERGIES Coded Allergies: No Known Allergies (03/28/16) Home Medications Active Scripts Naproxen (Naprosyn 500MG Tab) 500 MG PO Q12HP #10 TAB Ref 1 Prov: 01/15/17 Reported Medications Mirtazapine 15 MG PO DAILY Hydroxyzine Pamoate 50 MG PO BID PRN ANZIETY DOXYCYCLINE MONOHYDRATE (Monodox) 100 MG PO BID History Medical History General CAD? No Angina: No [place]: No Hypertension? No Hyperlipidemia? No CHF? No DVT? No PE? No COPD? No Asthma? No Anemia? No GERD? No Gastric ulcers? No GI Bleed? No Hernia? No Thyroid Problems? No Hypothyroidism? No CVA? No Seizures? No Diabetes? No Renal Insuffiency? No End Stage Renal Disease? No UTI? No Stones? No BPH? No GB Disease: No Nephritic Syndrome? No Asplenia? No Hepatitis? No Sickle Cell Disease? No Arthritis? No Migraines? No Cataracts? No Glaucoma? No MRSA? No HIV? No TB? No Anxiety? No Depression? No Cancer? No More? 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 Respiratory denies cough, denies shortness of breath, denies wheezing Cardiovascular denies chest pain, denies syncope Gastrointestinal denies abdominal pain, denies diarrhea, denies vomiting Genitourinary denies: dysuria, frequency, hesitancy, hematuria. Musculoskeletal denies back pain, denies joint pain, denies joint swelling, denies neck pain Skin see HPI, denies rash, other Psychiatric/Neurological see HPI, depressed, denies seizure Physical Exam Vital Signs Vital Signs Date Time Temp Pulse Resp B/P Pulse O2 O2 Flow FiO2 Ox Delivery Rate 01/23 2348 78 18 107/67 98 01/23 2207 97.9 85 18 106/59 100 - WBC >12,000 or <4,000 or 10% bands? 2 or more SIRS Criteria Met? B/P:107/67 MAP:74 Creatinine >2.0? UA output<0.5ml/kg/hr for 2 hrs? Platelet count >100,000? Lactate >2.0mmol/1? INR >1.2 or PTT > than 60 sec? Evidence of Organ Dysfunction? Provider documented clinical suspician of infection? N Sepsis Criteria Count: 0 Sepsis Risk: Low Sepsis Risk General Appearance no apparent distress Eye Exam - bilateral eye PERRL, bilateral eye EOMI Ear, Nose, Throat normal ENT inspection Neck supple Respiratory Status No: respiratory distress. Lung Sounds bilateral: lungs clear. 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 Yes Risk Assessment Score Risk Assessment Score Response Value DETAILS: Vague 1 AVAILABILITY OF MEANS: Not available;have to get 1 TIME: No specific time-future 1 LETHALITY OF METHOD: Pills or slashed wrists 1 CHANCE OF INTERVENTION: Others present most time 1 PREVIOUS SUICIDE ATTEMPS: None or one low lethality 1 STRESS: Mod reaction to loss/chng 2 COPING BEHAVIOR: Some daily act disrupted 2 DEPRESSION: Mod, some sadness/lonely 2 SUICIDE RESOURCES: Not available/hostile 3 COMMUNICATION ASPECTS: Directly express feeling 1 LIFESTYLE: Acting out behavior 2 MEDICAL STATUS: No sig. medical problems 1 Total 19 Level of Risk Determined: Med-(-) Nursing notified of risk? Yes Medical Decision Making LABS/Meds/Orders Pt receiving controlled substance in ED? No Results/Orders Laboratory Tests 01/23/17 2330: Opiates Screen NEGATIVE, Urine Methadone Screen NEGATIVE, Barbiturates NEGATIVE, Phencyclidine Screen NEGATIVE, Amphetamines Screen NEGATIVE, Benzodiazepines Screen NEGATIVE, Cocaine Screen NEGATIVE, Marijuana (THC) Screen POSITIVE H, Urine Color DK YELLOW, Urine Appearance CLOUDY, Urine pH 5.5, Ur Specific [place] >= 1.030, Urine Protein 2+ H, Urine Ketones 3+ H, Urine Blood 3+ H, Urine Nitrate NEGATIVE, Urine Bilirubin NEGATIVE, Urine Urobilinogen 0.2, Ur Leukocyte Esterase NEGATIVE, Urine RBC 20-50, Ur Squamous Epith Cells 50-100, Urine Glucose NEGATIVE 01/23/17 2215: Sodium 139, Potassium 3.7, Chloride 102, Carbon Dioxide 27, BUN 16, Creatinine 0.9, Estimated Creat Clear 76, Estimated GFR (MDRD) 78, Glucose 113 H, Calcium 9.5, Total Bilirubin 0.6, AST 27, ALT 23, Alkaline Phosphatase 57, Total Protein 7.7, Albumin 5.0, Globulin 2.7, Albumin/Globulin Ratio 1.9 H, WBC 8.7, RBC 4.78 , Hgb 13.7, Hct 41.2, MCV 86.2, RDW 12.8, Plt Count 305, MPV 6.6 L, Gran % 76.4 , Gran # 6.6, Lymphocytes % 18.1, Monocytes % 4.9, Eosinophils % 0.4, Basophils % 0.3, Lymphocytes # 1.6, Monocytes # 0.4, Eosinophils # 0.0, Basophils # 0.0, PUBS MCHC 33.2, MCH 28.6, Salicylates 2.5 L, Acetaminophen 0 L, Alcohols 0 Current Medication Orders Sig/Ashvin Start time Last Medication Dose Route Stop Time Status Admin Sodium Chloride 10 ML PRN PRN 01/23 2230 AC IV 01/24 2217 Orders Procedure Date/time Status DERMABOND WOUND CLOSURE 01/23 2257 Active IV SALINE LOCK 01/23 2217 Active URINALYSIS/COMPLETE 01/23 2217 Complete SALICYLATE 01/23 2217 Complete URINE 01/23 2217 Complete DRUG ABUSE SCREEN (TRIAGE) 01/23 2217 Complete CBC WITH AUTO DIFF 01/23 2217 Complete CHEM 12 PROFILE 01/23 2217 Complete ALCOHOL 01/23 2217 Complete Acetaminophen 01/23 2217 Complete Procedures Laceration/Wound Repair Laceration/Wound Repair Risks/benefits discussed with pt/guardian? Yes Tetanus status up to date Wound Location wrist Wound Length (cm) 2 Wound's Depth, Shape superficial Wound Explored no FB identified Risk of retained FB explained to pt/guardian? No Irrigated w/ Saline (ccs) 0 Wound Prep Hibiclens, Saline Anesthesia none Volume Anesthetic (ccs) 0 Wound Debrided none Wound Repaired With Dermabond Layer Closure No Total Number Sutures 0 Sterile Dressing Applied Yes Splint Applied No Sling Applied No Departure Departure Time of Disposition 3 Disposition DC/XFER from ER to [facility] Clinical Impression Primary Impression: Suicidal ideations Secondary Impressions: Depression Qualifiers: Depression Type: unspecified Qualified Code: F32.9 - Major depressive disorder, single episode, unspecified Laceration Condition STABLE Patient Instructions DI for Depression -- Adult Additional Instructions [facility] Counsel[facility] Counseled pt/family regarding diagnosis, test results ED Critical Care Critical Care No at [id number]
[2017-01-23 23:40] LABS: URINE BLOOD 3+ (NEG)
[2017-01-23 23:44] LABS: URINE BILIRUBIN - DIPSTICK NEGATIVE (NEG); URINE SQUAMOUS CELLS 50-100 #/hpf (0-5)
[2017-01-23 23:53] LABS: AMPHETAMINES/METAMPHETAMINES NEGATIVE ng/mL (<1000)
[2017-01-24 00:40] VITALS: BP 130/95
== END 2017-01-24 00:55 | disposition short-term general hospital (02) ==
LOC: ER 21:56
PROVIDERS: Emergency Medicine
PROC: 0HQEXZZ Repair Left Lower Arm Skin, External Approach (ICD-10-PCS; principal; 2017-01-23)
DX: S61.512A Laceration without foreign body of left wrist, initial encounter (principal); X78.1XXA Intentional self-harm by knife, initial encounter; Y92.019 Unspecified place in single-family (private) house as the place of occurrence of the external cause; F32.9 Major depressive disorder, single episode, unspecified; F17.210 Nicotine dependence, cigarettes, uncomplicated; T39.312A Poisoning by propionic acid derivatives, intentional self-harm, initial encounter
CPT/HCPCS: G0168